=== PATIENT | female | born 1980 | race Caucasian/White ===

== ENCOUNTER 2018-10-25 00:45 | Emergency (ER) | payer SELFPAY ==
[~2018-10-25] VITALS: Ht 162.6 cm; Wt 83.9 kg
--- NOTE | 2018-10-25 01:15 | ED EENT ---
History of Present Illness General Chief Complaint: Eye Problems Stated Complaint: PAIN IN EYES Nursing Triage Note: pt states red eyes for 3 days, thinks it is pink eye History of Present Illness Date Seen by Provider: Oct 25, 2018 Time Seen by Provider: 01:11 Initial Comments Patient is a 37-year-old female who presents to the ER with 2 days of eye complaints. She describes watering and discharge and drainage from the eyes for the last 48 hours. 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 No fevers or chills. No respiratory complaints. No other symptoms this evening. No foreign body sensation. No loss of vision. She does not wear contacts. Allergies and Home Medications Allergies Coded Allergies: cefaclor (Verified Allergy, Unknown, hives, 10/25/18) Home Medications Polymyxin B Sulf/Trimethoprim 10 Ml Drops, 1 DROP OU Q4H Prescribed by: JEANINE DIETRICH on 10/25/18 0117 Patient Home Medication List Home Medication List Reviewed: Yes Review of Systems Review of Systems Constitutional: no symptoms reported Eyes: No Symptoms Reported, See HPI Ears: No Symptoms Reported Nose: no symptoms reported Mouth: no symptoms reported Throat: no symptoms reported Respiratory: no symptoms reported Cardiovascular: no symptoms reported Past Gfbbnsr-Sswzhv-Wasutk Hx Patient Social History Recent Foreign Travel: No Contact w/Someone Who Travel: No Recent Infectious Disease Expo: No Physical Abuse: No Sexual Abuse: No Mistreated: No Fear: No 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 oz. 83.703538ue; BMI Method:Stated General Appearance: WD/WN, no apparent distress Eyes: bilateral eye PERRL, bilateral eye EOMI, bilateral eye conjunctival inflammation Nose: normal inspection Mouth/Throat: normal mouth inspection Neck: full range of motion Cardiovascular: normal peripheral pulses, regular rate, rhythm Respiratory: lungs clear, normal breath sounds Gastrointestinal: normal bowel sounds Neurologic/Psychiatric: puffer tender II-XII nml as tested Skin: normal color, warm/dry Progress/Results/Core Measures Results/Orders Vital Signs/I&O 10/25/18 10/25/18 01:03 01:26 Temp 99.4 Pulse 16 72 Resp 14 12 B/P (MAP) 143/94 (110) 132/89 (103) Pulse Ox 97 96 O2 Delivery Room Air Room Air Blood Pressure Mean: 110 Progress Progress Note : Time: 01:13 Progress Note Patient is evaluated in the emergency department this evening for simple pinkeye. She's had symptoms for 48 hours. No loss of vision. She does not wear contacts. Plan is for discharge home. She is given Polytrim eyedrops and advised to use one drop every 4 hours while awake over the next 5-7 days until symptoms clear. Follow-up with primary care doctor or come back to the ER for any new or worsening symptoms. Departure Impression Primary Impression: Eye infection Additional Impression: Conjunctivitis Disposition: 01 HOME, SELF-CARE Condition: Improved Departure-Patient Inst. Referrals: NO,LOCAL PHYSICIAN (PCP) Primary Care Physician Patient Instructions: Conjunctivitis (Pinkeye) (DC) Scripts Polymyxin B Sulf/Trimethoprim (Polytrim Eye Drops) 10 Ml Drops 1 DROP OU Q4H for 5 Days, DROPS Prov: JEANINE DIETRICH DO 10/25/18 JEANINE DIETRICH DO Oct 25, 2018 01:15
[2018-10-25] MEDS ORDERED: POLY10DR OU (01:17)
[2018-10-25] MEDS ORDERED: RX-POLY/TRIMETH (POLYTRIM) OP 10 ML BTL OP ONE (01:21)
[2018-10-25 01:26] VITALS: BP 132/89
== END 2018-10-25 01:26 | disposition home or self-care (01) ==
LOC: ER FS 00:50
DX: H44.003 Unspecified purulent endophthalmitis, bilateral (principal); H10.9 Unspecified conjunctivitis; Z88.1 Allergy status to other antibiotic agents; Z98.51 Tubal ligation status
CPT/HCPCS: 99283

== ENCOUNTER 2018-11-27 05:17 | Emergency (ER) | payer SELFPAY ==
[~2018-11-27] VITALS: Ht 154.9 cm; Wt 79.4 kg
[~2018-11-27 05:17] MED LIST: POLY10DR OU
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
--- NOTE | 2018-11-27 05:57 | Diagnostic Imaging Report ---
INDICATION: Tachycardia, now sick at stomach.. TECHNIQUE: Single view chest 5:25 AM. CORRELATION STUDY: None FINDINGS: The heart size, mediastinal configuration and pulmonary vascularity are within normal limits. The lungs are clear with no consolidating infiltrate. There is no significant effusion or pneumothorax. IMPRESSION: 1. Negative appearing portable chest. Dictated by: Dictated on workstation # [id number]
[2018-11-27 06:15] LABS: EOSINOPHILS % (AUTO) 2 % (0-10); HEMATOCRIT 40 % (35-52); HEMOGLOBIN 13.8 G/DL (11.5-16.0); LYMPHOCYTES % (AUTO) 23 % (12-44); MEAN CORPUSCULAR HEMOGLOBIN 35 PG (25-34); MEAN CORPUSCULAR HGB CONC 34 G/DL (32-36); MEAN CORPUSCULAR VOLUME 101 FL (80-99); MEAN PLATELET VOLUME 8.7 FL (7.4-10.4); MONOCYTES % (AUTO) 6 % (0-12); NEUTROPHILS % (AUTO) 68 % (42-75); PLATELET COUNT 237 10^3/uL (130-400); RED CELL DISTRIBUTION WIDTH 11.7 % (10.0-14.5); WHITE BLOOD COUNT 11.3 10^3/uL (4.3-11.0)
[2018-11-27 06:16] LABS: BASOPHILS # (AUTO) 0.1 10^3/uL (0.0-0.1); BASOPHILS % (AUTO) 0 % (0-10); EOSINOPHILS # (AUTO) 0.5 10^3/uL (0.0-0.3); LYMPHOCYTES # (AUTO) 2.6 X 10^3 (1.0-4.0); MONOCYTES # (AUTO) 0.7 X 10^3 (0.0-1.0); NEUTROPHILS # (AUTO) 7.7 X 10^3 (1.8-7.8)
[2018-11-27 06:33] LABS: ALANINE AMINOTRANSFERASE 7 U/L (0-55); ALKALINE PHOSPHATASE 70 U/L (40-136); BILIRUBIN,TOTAL 0.2 MG/DL (0.1-1.0); BUN/CREATININE RATIO 15; CALCIUM 8.9 MG/DL (8.5-10.1); CARBON DIOXIDE 26 MMOL/L (21-32); CHLORIDE 99 MMOL/L (98-107); CREATININE SERUM 0.74 MG/DL (0.60-1.30); GFR ESTIMATED > 60; GLUCOSE 116 MG/DL (70-105); MAGNESIUM 2.1 MG/DL (1.8-2.4); POTASSIUM 3.6 MMOL/L (3.6-5.0); SODIUM 137 MMOL/L (135-145)
[2018-11-27 06:34] LABS: ALBUMIN 4.2 GM/DL (3.2-4.5); TOTAL PROTEIN 6.7 GM/DL (6.4-8.2)
[2018-11-27 06:35] LABS: AMPHETAMINE SCREEN, URINE NEGATIVE (NEGATIVE); BARBITURATE SCREEN URINE NEGATIVE (NEGATIVE); BENZODIAZEPINES SCREEN URINE NEGATIVE (NEGATIVE); CANNABINOID SCREEN, URINE NEGATIVE (NEGATIVE); COCAINE SCREEN URINE POSITIVE (NEGATIVE); METHADONE STAT NEGATIVE (NEGATIVE); METHAMPHETAMINE SCREEN URINE S NEGATIVE (NEGATIVE); OPIATE SCREEN URINE NEGATIVE (NEGATIVE); OXYCODONE STAT NEGATIVE (NEGATIVE); PROPOXYPHENE STAT NEGATIVE (NEGATIVE); TRICYCLIC ANTIDEPRESSANTS SCRE NEGATIVE (NEGATIVE)
[2018-11-27 07:06] VITALS: BP 133/75
== END 2018-11-27 07:06 | disposition home or self-care (01) ==
LOC: EDUNIT# 05:17 → ER FS 05:20
DX: R00.2 Palpitations (principal); F41.9 Anxiety disorder, unspecified; Z88.1 Allergy status to other antibiotic agents; Z98.51 Tubal ligation status
CPT/HCPCS: 36415; 71045; 80053; 80306; 83735; 84443; 84484; 85025; 85379; 93005; 93041

== ENCOUNTER 2019-02-17 09:10 | Emergency (ER) | payer SELFPAY ==
[~2019-02-17] VITALS: Ht 154.9 cm; Wt 79.4 kg
--- NOTE | 2019-02-17 09:27 | ED General ---
General Stated Complaint: CHEST PAIN; RT ARM PAIN/NUMBNESS History of Present Illness Date Seen by Provider: Feb 17, 2019 Time Seen by Provider: 09:27 Initial Comments Patient presents emergency department for evaluation of chest pain that she says started while she was at work. 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 She said it felt like a pressure sensation in the center of her chest and it radiated towards her right arm and caused both hands tingle in the fingertips. She says that she had some nausea but no shortness of breath vomiting or diaphoresis. She does not have diabetes hypertension high cholesterol or family history of heart disease but she does smoke cigarettes. She says she has been diagnosed with anxiety in the past and this feels somewhat similar. She is in no obvious distress with normal vital signs except mild tachycardia at 105 on the monitor while I'm in the room. Allergies and Home Medications Allergies Coded Allergies: cefaclor (Verified Allergy, Unknown, hives, 10/25/18) Home Medications Polymyxin B Sulf/Trimethoprim 10 Ml Drops, 1 DROP OU Q4H Prescribed by: JEANINE DIETRICH on 10/25/18 0117 Patient Home Medication List Home Medication List Reviewed: Yes Review of Systems Review of Systems Constitutional: no symptoms reported EENTM: no symptoms reported Respiratory: no symptoms reported Cardiovascular: chest pain Gastrointestinal: nausea All Other Systems Reviewed Negative Unless Noted: Yes Past Pzwylwv-Kdtdwx-Dhwahf Hx Patient Social History Type Used: Cigarettes 2nd Hand Smoke Exposure: No Recent Hopitalizations: No Seasonal Allergies Seasonal Allergies: No Past Medical History Section, Tonsillectomy, Tubal Ligation Respiratory: Yes Asthma Cardiac: No Neurological: No 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 oz. 79.150511uf; BMI Method:Stated General Appearance: No Apparent Distress, WD/WN Neck: Supple Respiratory: Lungs Clear, No Respiratory Distress Cardiovascular: Normal Peripheral Pulses, Tachycardia Gastrointestinal: Non Tender, Soft Back: Normal Inspection Extremity: Normal Capillary Refill Neurologic/Psychiatric: Alert, Oriented x3 Skin: Normal Color, Warm/Dry Progress/Results/Core Measures Suspected Sepsis SIRS Temperature: Pulse: Respiratory Rate: Laboratory Tests 02/17/19 09:18: White Blood Count 6.5 Blood Pressure / Mean: Laboratory Tests 02/17/19 09:18: Creatinine 0.72, Platelet Count 235, Total Bilirubin 0.5 Results/Orders Lab Results Laboratory Tests Test 02/17/19 09:18 Range/Units White Blood Count 6.5 4.3-11.0 10^3/uL Red Blood Count 3.97 L 4.35-5.85 10^6/uL Hemoglobin 13.6 11.5-16.0 G/DL Hematocrit 40 35-52 % Mean Corpuscular Volume 100 H 80-99 FL Mean Corpuscular Hemoglobin 34 25-34 PG Mean Corpuscular Hemoglobin Concent 34 32-36 G/DL Red Cell Distribution Width 12.0 10.0-14.5 % Platelet Count 235 130-400 10^3/uL Mean Platelet Volume 9.0 7.4-10.4 FL Neutrophils (%) (Auto) 66 42-75 % Lymphocytes (%) (Auto) 24 12-44 % Monocytes (%) (Auto) 7 0-12 % Eosinophils (%) (Auto) 2 0-10 % Basophils (%) (Auto) 1 0-10 % Neutrophils # (Auto) 4.3 1.8-7.8 X 10^3 Lymphocytes # (Auto) 1.6 1.0-4.0 X 10^3 Monocytes # (Auto) 0.4 0.0-1.0 X 10^3 Eosinophils # (Auto) 0.2 0.0-0.3 10^3/uL Basophils # (Auto) 0.1 0.0-0.1 10^3/uL D-Dimer < 0.27 0.00-0.49 UG/ML Sodium Level 141 135-145 MMOL/L Potassium Level 3.4 L 3.6-5.0 MMOL/L Chloride Level 102 98-107 MMOL/L Carbon Dioxide Level 27 21-32 MMOL/L Anion Gap 12 5-14 MMOL/L Blood Urea Nitrogen 9 7-18 MG/DL Creatinine 0.72 0.60-1.30 MG/DL Estimat Glomerular Filtration Rate > 60 BUN/Creatinine Ratio 13 Glucose Level 109 H 70-105 MG/DL Calcium Level 9.2 8.5-10.1 MG/DL Corrected Calcium 9.0 8.5-10.1 MG/DL Magnesium Level 2.2 1.8-2.4 MG/DL Total Bilirubin 0.5 0.1-1.0 MG/DL Aspartate Amino Transf (AST/SGOT) 14 5-34 U/L Alanine Aminotransferase (ALT/SGPT) 10 0-55 U/L Alkaline Phosphatase 77 40-136 U/L Troponin T < 6 <=10 NG/L Total Protein 7.2 6.4-8.2 GM/DL Albumin 4.3 3.2-4.5 GM/DL My Orders Orders - MONTY LAL DO Cbc With Automated Diff (02/17/19 09:33) Comprehensive Metabolic Panel (02/17/19 09:33) Troponin T (02/17/19 09:33) Fibrin Degradation Products (02/17/19 09:33) Magnesium (02/17/19 09:33) Chest 1 View Ap/Pa Only (02/17/19 09:33) Aspirin Chewable Tablet (Baby Aspirin Ch (02/17/19 09:45) Potassium Chloride (Tablet) (K Dur Table (02/17/19 11:00) Medications Given in ED Current Medications Medications Dose Ordered Sig/Delfin Route Start Time Stop Time Status Last Admin Dose Admin Aspirin 324 mg ONCE ONCE PO 02/17/19 09:45 02/17/19 09:46 DC 02/17/19 09:41 324 MG Vital Signs/I&O 02/17/19 02/17/19 09:18 09:18 Temp 97.9 Pulse 99 Resp 18 B/P (MAP) 139/70 (93) Pulse Ox 96 O2 Delivery Room Air Room Air Capillary Refill : Progress Note : Progress Note Patient given IV fluids and aspirin and I offered her Ativan however she refused. Her heart rate improved to 88 and she says she has had no further chest pain or arm pain since her arrival to the emergency department. Her workup is negative for acute process as her d-dimer troponin and EKG are all normal. I did give her a potassium supplement here however I do not think that this is causing her symptoms. Told patient that I would like to repeat her troponin and 3 hours after the initial as that is the typical way we further risk stratify her chest pain. She refused stating that she is asymptomatic and would like to go home. She verbalized understanding that she is leaving without a full emergency department workup and is accepting the risks of and disability by leaving against my recommendations. Patient stated that she would try and follow up primary care provider within 2 days and she would come back to emergency department with worsening chest pain shortness of breath or other general concerns. I advised that she stop smoking take an aspirin daily and not exert herself until further cleared by primary care provider or special officer. Patient and family aware and agreeable with plan for discharge and verbalized understanding of the above instructions. Departure Impression Primary Impression: Chest pain Qualified Codes: R07.89 - Other chest pain Additional Impressions: Hypokalemia Paresthesia Disposition: 01 HOME, SELF-CARE Condition: Stable Departure-Patient Inst. Referrals: ROSIBEL MOODY MD (PCP/Family) Primary Care Physician Patient Instructions: Chest Pain (DC) MONTY LAL DO Feb 17, 2019 09:27
[2019-02-17] MEDS ORDERED: NS 1000 ML IV BAG IV ONE (09:45)
[2019-02-17] MEDS ORDERED: ASPIRIN 81 MG CHEW (CHILDREN'S ASA) PO ONE (09:45)
--- NOTE | 2019-02-17 10:15 | Diagnostic Imaging Report ---
INDICATION: Chest pain and right arm numbness. Time of exam: 9:47 AM Correlation is made with prior chest from 11/27/2018. The heart size is normal. The pulmonary vascularity is unremarkable. The lungs are clear. No infiltrate, effusion or pneumothorax is detected. Impression: No acute cardiopulmonary process is detected. Dictated by: Dictated on workstation # [id number]
[2019-02-17 10:23] LABS: BASOPHILS % (AUTO) 1 % (0-10); EOSINOPHILS # (AUTO) 0.2 10^3/uL (0.0-0.3); EOSINOPHILS % (AUTO) 2 % (0-10); HEMATOCRIT 40 % (35-52); HEMOGLOBIN 13.6 G/DL (11.5-16.0); LYMPHOCYTES # (AUTO) 1.6 X 10^3 (1.0-4.0); LYMPHOCYTES % (AUTO) 24 % (12-44); MEAN CORPUSCULAR HEMOGLOBIN 34 PG (25-34); MEAN CORPUSCULAR HGB CONC 34 G/DL (32-36); MEAN CORPUSCULAR VOLUME 100 FL (80-99); MONOCYTES # (AUTO) 0.4 X 10^3 (0.0-1.0); MONOCYTES % (AUTO) 7 % (0-12); NEUTROPHILS # (AUTO) 4.3 X 10^3 (1.8-7.8); NEUTROPHILS % (AUTO) 66 % (42-75); PLATELET COUNT 235 10^3/uL (130-400); WHITE BLOOD COUNT 6.5 10^3/uL (4.3-11.0)
[2019-02-17 10:24] LABS: BASOPHILS # (AUTO) 0.1 10^3/uL (0.0-0.1); SODIUM 141 MMOL/L (135-145)
[2019-02-17 10:25] LABS: ALANINE AMINOTRANSFERASE 10 U/L (0-55); ALBUMIN 4.3 GM/DL (3.2-4.5); ALKALINE PHOSPHATASE 77 U/L (40-136); BILIRUBIN,TOTAL 0.5 MG/DL (0.1-1.0); BUN/CREATININE RATIO 13; CALCIUM 9.2 MG/DL (8.5-10.1); CARBON DIOXIDE 27 MMOL/L (21-32); CHLORIDE 102 MMOL/L (98-107); CREATININE SERUM 0.72 MG/DL (0.60-1.30); GFR ESTIMATED > 60; GLUCOSE 109 MG/DL (70-105); MAGNESIUM 2.2 MG/DL (1.8-2.4); POTASSIUM 3.4 MMOL/L (3.6-5.0); TOTAL PROTEIN 7.2 GM/DL (6.4-8.2)
[2019-02-17] MEDS ORDERED: KCL 20 MEQ TAB (K-DUR) PO ONE (11:00)
[2019-02-17 12:08] VITALS: BP 103/72
== END 2019-02-17 12:08 | disposition home or self-care (01) ==
LOC: EDUNIT# 09:10 → ER FS 09:12
DX: R07.9 Chest pain, unspecified (principal); E87.6 Hypokalemia; R20.2 Paresthesia of skin; F41.9 Anxiety disorder, unspecified; J45.909 Unspecified asthma, uncomplicated; F17.210 Nicotine dependence, cigarettes, uncomplicated; Z88.1 Allergy status to other antibiotic agents; Z98.51 Tubal ligation status; Z90.89 Acquired absence of other organs
CPT/HCPCS: 36415; 71045; 80053; 83735; 84484; 85025; 85379; 93005

== ENCOUNTER 2019-06-01 22:27 | Emergency (ER) | payer SELFPAY ==
[~2019-06-01] VITALS: Ht 157.5 cm; Wt 81.6 kg
[2019-06-01] MEDS ORDERED: AMOXICILLIN 500 MG (POLYMOX) CAP PO STA (22:45)
[2019-06-01] MEDS ORDERED: AMOX500C2 PO (22:47)
[2019-06-01 22:51] VITALS: BP 142/90
--- NOTE | 2019-06-01 22:56 | ED EENT ---
History of Present Illness General Chief Complaint: Oral/Throat Problems Stated Complaint: SORE THROAT Nursing Triage Note: pt co sore throat since this am Source: patient Exam Limitations: no limitations History of Present Illness Date Seen by Provider: Jun 01, 2019 Time Seen by Provider: 22:35 Initial Comments Patient is a 38-year-old female with history of recurrent strep throats who presents with sore throat and exposure to family members currently being treated for strep throat. Symptom onset today. Reports mild dysphasia. No fever, nausea, vomiting, drooling her rash. No other acute symptoms or complaints. Timing/Duration: gradual Severity: moderate Prearrival Treatment: no prearrival treatment Associated Symptoms: nasal congestion/drainage, sore throat, voice change Allergies and Home Medications Allergies Coded Allergies: cefaclor (Verified Allergy, Unknown, hives, 10/25/18) Home Medications Amoxicillin 500 Mg Capsule, 500 MG PO BID Prescribed by: IVANNA ROLLE on 06/01/19 0147 Polymyxin B Sulf/Trimethoprim 10 Ml Drops, 1 DROP OU Q4H Prescribed by: JEANINE DIETRICH on 10/25/18 0117 Patient Home Medication List Home Medication List Reviewed: Yes Review of Systems Review of Systems Constitutional: see HPI Eyes: See HPI Ears: See HPI Nose: see HPI Mouth: see HPI Throat: see HPI Respiratory: see HPI Cardiovascular: see HPI Gastrointestinal: no symptoms reported Musculoskeletal: no symptoms reported Skin: no symptoms reported Neurological: No Symptoms Reported Hematologic/Lymphatic: No Symptoms Reported Immunological/Allergic: no symptoms reported Past Plqgstl-Mikpqg-Ywyfog Hx Past Med/Social Hx: Reviewed Nursing Past Med/Soc Hx Patient Social History Alcohol Use: Denies Use Recreational Drug Use: No Type Used: Cigarettes 2nd Hand Smoke Exposure: No Recent Foreign Travel: No Contact w/Someone Who Travel: No Recent Infectious Disease Expo: No Recent Hopitalizations: No Physical Abuse: No Sexual Abuse: No Mistreated: No Fear: No Seasonal Allergies Seasonal Allergies: No Past Medical History Surgeries: Yes Section, Tonsillectomy, Tubal Ligation Respiratory: Yes Asthma Cardiac: No Neurological: No 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 oz. 79.311938bt; 32.00 BMI Method:Stated General Appearance: WD/WN Eyes: bilateral eye normal inspection, bilateral eye EOMI, bilateral eye abnormal EOM Ears: bilateral ear auricle normal, bilateral ear canal normal Nose: normal inspection Mouth/Throat: other (gradual swelling mild erythema,) Neck: full range of motion, supple ( erythema), lymphadenopathy (R), lymphadenopathy (L) Cardiovascular: normal peripheral pulses, regular rate, rhythm Respiratory: chest non-tender, lungs clear Skin: normal color Progress/Results/Core Measures Results/Orders My Orders Orders - IVANNA ROLLE DO Amoxicillin Capsule (Polymox Capsule) (06/01/19 22:45) Vital Signs/I&O 06/01/19 22:43 Temp 36.4 Pulse 104 Resp 18 B/P (MAP) 142/90 (107) Pulse Ox 97 O2 Delivery Room Air Blood Pressure Mean: 107 Departure Impression Primary Impression: Pharyngitis Disposition: 01 HOME, SELF-CARE Condition: Improved Departure-Patient Inst. Add. Discharge Instructions: Please take ibuprofen for sore throat complete course of antibiotics. Follow-up with your PCP in 2-3 days for reevaluation if symptoms persist. All discharge instructions reviewed with patient and/or family. Voiced understanding. Scripts Amoxicillin (Amoxicillin) 500 Mg Capsule 500 MG PO BID, #14 CAP 0 Refills Prov: IVANNA ROLLE DO 06/01/19 IVANNA ROLLE DO Jun 01, 2019 22:56
== END 2019-06-01 22:51 | disposition home or self-care (01) ==
LOC: EDUNIT# 22:27 → ER FS 22:28
DX: J02.9 Acute pharyngitis, unspecified (principal); J45.909 Unspecified asthma, uncomplicated; Z88.1 Allergy status to other antibiotic agents; Z90.89 Acquired absence of other organs; Z98.51 Tubal ligation status
CPT/HCPCS: 99283

== ENCOUNTER 2019-06-15 01:00 | Emergency (ER) | payer SELFPAY ==
[~2019-06-15] VITALS: Ht 157 cm; Wt 79.0 kg
[~2019-06-15 01:00] MED LIST changes: +AMOX500C2 PO
[2019-06-15] MEDS ORDERED: TRAM50TA2 PO (01:39)
[2019-06-15] MEDS ORDERED: IBUPROFEN 800 MG (MOTRIN) TAB PO ONE ×2 (01:40→01:45)
[2019-06-15 01:48] VITALS: BP 119/71
--- NOTE | 2019-06-15 07:07 | Diagnostic Imaging Report ---
EXAMINATION: Left ankle radiographs, 2 views. COMPARISON: None. HISTORY: 38-year-old female, ankle injury. FINDINGS: There are limitations of the exam relating to the 2 View technique. There is a normal variant os trigonum. There is a calcaneal heel spur. There is minimal degenerative type enthesopathy at the Achilles tendon insertion. There is a very small ossification adjacent to the dorsal aspect of the talar neck which is age-indeterminate. There is no particular prominent adjacent soft tissue swelling. There is no additionally identified potential acute fracture. There is no gross malalignment of the ankle mortise. There is no large tibiotalar joint effusion. IMPRESSION: 1. Very small 2 to 3 mm ossification adjacent to the dorsal aspect of the talar neck of uncertain exact age without particular prominent adjacent soft tissue swelling. 2. No additional identified potential acute fracture. 3. No gross malalignment of the ankle mortise or tibiotalar joint effusion. Dictated by: Dictated on workstation # [id number]
--- NOTE | 2019-06-15 15:04 | ED Lower Extremity ---
General Chief Complaint: Lower Extremity Stated Complaint: LEFT ANKLE PAIN Nursing Triage Note: PT AMBULATE TO ROOM FS02 WITH C/O LEFT ANKLE PAIN STARTING LAST NIGHT. PT STATES SHE STEPPED OFF OF A CURB AN TWISTED OR FX HER ANKLE. Nursing Sepsis Screen: No Definite Risk Exam Limitations: no limitations History of Present Illness Date Seen by Provider: Jun 14, 2019 Time Seen by Provider: 19:20 Initial Comments Patient is a 30-year-old female presents with left ankle pain after tripping on a curb 2 hours prior to ED arrival. Patient states she twisted her ankle. R eports pain with palpation and weightbearing. Denies other injury or pain complaint. Onset: just prior to arrival Pain/Injury Location: left foot Method of Injury: twisted Allergies and Home Medications Allergies Coded Allergies: cefaclor (Verified Allergy, Unknown, hives, 10/25/18) Home Medications Amoxicillin 500 Mg Capsule, 500 MG PO BID Prescribed by: IVANNA ROLLE on 06/01/19 2247 Polymyxin B Sulf/Trimethoprim 10 Ml Drops, 1 DROP OU Q4H Prescribed by: JEANINE DIETRICH on 10/25/18 0117 Tramadol HCl 50 Mg Tablet, 50 MG PO Q6H PRN for PAIN Prescribed by: IVANNA ROLLE on 06/15/19 0139 Patient Home Medication List Home Medication List Reviewed: Yes Review of Systems Constitutional: no symptoms reported EENTM: no symptoms reported Respiratory: no symptoms reported Cardiovascular: no symptoms reported Gastrointestinal: no symptoms reported Genitourinary: no symptoms reported Musculoskeletal: see HPI, joint pain Psychiatric/Neurological: No Symptoms Reported Past Rcspnvt-Meajtv-Symabh Hx Patient Social History Alcohol Use: Denies Use Recreational Drug Use: No Smoking Status: Current Everyday Smoker Type Used: Cigarettes 2nd Hand Smoke Exposure: No Recent Foreign Travel: No Contact w/Someone Who Travel: No Recent Infectious Disease Expo: No Recent Hopitalizations: No Physical Abuse: No Sexual Abuse: No Mistreated: No Fear: No Seasonal Allergies Seasonal Allergies: No Past Medical History Surgeries: Yes Section, Tonsillectomy, Tubal Ligation Respiratory: Yes Asthma Cardiac: No Neurological: No [employer] History: Tubal Ligation Genitourinary: No Gastrointestinal: No Musculoskeletal: No Endocrine: No HEENT: No Cancer: No Psychosocial: No Integumentary: No Blood Disorders: No Physical Exam Vital Signs Vital Signs - First Documented 06/15/19 06/15/19 01:11 01:48 Temp 36.9 Pulse 84 Resp 17 B/P (MAP) 116/69 (85) Pulse Ox 100 O2 Delivery Room Air Capillary Refill : Less Than 3 Seconds Height, Weight, BMI Height: 5'1.00" Weight: 175lbs. oz. 79.875101qn; 32.00 BMI Method:Stated General Appearance: WD/WN, no apparent distress Ankles: left ankle soft tissue tenderness, left ankle swelling (no gross deformity) Feet: left foot soft tissue tenderness, left foot swelling Neurologic/Tendon: normal sensation, normal motor functions, normal tendon functions Progress/Results/Core Measures Results/Orders My Orders Orders - IVANNA ROLLE DO Ankle 2 View Left (06/15/19 01:20) Crutches (06/15/19 01:34) Gel Ankle Brace (06/15/19 01:34) Ibuprofen Tablet (Motrin Tablet) (06/15/19 01:40) Ibuprofen Tablet (Motrin Tablet) (06/15/19 01:45) Vital Signs/I&O 06/15/19 06/15/19 01:11 01:48 Temp 36.9 Pulse 84 77 Resp 17 17 B/P (MAP) 116/69 (85) 119/71 Pulse Ox 100 O2 Delivery Room Air Room Air Blood Pressure Mean: 85 Departure Communication (Admissions) Left ankle sprain without evidence of fracture on imaging studies. Recommendations are supportive care with PCP follow-up. Impression Primary Impression: Sprain and strain of ankle Disposition: 01 HOME, SELF-CARE Condition: Stable Departure-Patient Inst. Referrals: ROSIBEL MOODY MD (PCP) Primary Care Physician Patient Instructions: Ankle Sprain (DC) Add. Discharge Instructions: Use crutches and wear splint and do not weightbearing with left ankle if painful. Take ibuprofen for pain and tramadol as needed for additional relief. Follow up with PCP for reevaluation in 3-5 days if continued pain on attempted weightbearing. All discharge instructions reviewed with patient and/or family. Voiced understanding. Scripts Tramadol HCl (Tramadol HCl) 50 Mg Tablet 50 MG PO Q6H PRN for PAIN for 3 Days, #15 TAB 0 Refills Prov: IVANNA ROLLE DO 06/15/19 IVANNA ROLLE DO Jun 15, 2019 15:04
== END 2019-06-15 01:48 | disposition home or self-care (01) ==
LOC: EDUNIT# 01:00 → ER FS 01:04
DX: S93.402A Sprain of unspecified ligament of left ankle, initial encounter (principal); J45.909 Unspecified asthma, uncomplicated; F17.210 Nicotine dependence, cigarettes, uncomplicated; Z90.89 Acquired absence of other organs; Z98.51 Tubal ligation status; Z88.1 Allergy status to other antibiotic agents; X50.1XXA Overexertion from prolonged static or awkward postures, initial encounter
CPT/HCPCS: 73600

== ENCOUNTER 2019-07-03 00:47 | Emergency (ER) | payer SELFPAY ==
[~2019-07-03] VITALS: Ht 157 cm; Wt 84.5 kg
[~2019-07-03 00:47] MED LIST changes: +TRAM50TA2 PO
[2019-07-03] MEDS ORDERED: AZIT250T PO (01:06)
--- NOTE | 2019-07-03 01:07 | ED EENT ---
History of Present Illness General Chief Complaint: Oral/Throat Problems Stated Complaint: SORE THROAT AND EARACHE Source: patient Exam Limitations: no limitations History of Present Illness Date Seen by Provider: Jul 03, 2019 Time Seen by Provider: 01:02 Initial Comments Patient complains of sore throat and bilateral earache for the past 2 days. It is worse at night. No fevers or chills. No sick contacts. She took nothing for her symptoms. Wondering about work tomorrow. Allergies and Home Medications Home Medications Amoxicillin 500 Mg Capsule, 500 MG PO BID Prescribed by: IVANNA ROLLE on 06/01/19 2247 Polymyxin B Sulf/Trimethoprim 10 Ml Drops, 1 DROP OU Q4H Prescribed by: JEANINE DIETRICH on 10/25/18 0117 Tramadol HCl 50 Mg Tablet, 50 MG PO Q6H PRN for PAIN Prescribed by: IVANNA ROLLE on 06/15/19 0139 Patient Home Medication List Home Medication List Reviewed: Yes Review of Systems Review of Systems Constitutional: no symptoms reported Eyes: No Symptoms Reported Ears: Pain Nose: no symptoms reported Throat: pain Respiratory: no symptoms reported Cardiovascular: no symptoms reported Skin: no symptoms reported Past Jbcvqhg-Morbme-Hjdmba Hx Patient Social History Type Used: Cigarettes 2nd Hand Smoke Exposure: No Recent Foreign Travel: No Contact w/Someone Who Travel: No Recent Hopitalizations: No Seasonal Allergies Seasonal Allergies: No Past Medical History Surgeries: Yes Section, Tonsillectomy, Tubal Ligation Respiratory: Yes Asthma Cardiac: No Neurological: 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 oz. 79.214032fk; 32.00 BMI Method:Stated General Appearance: WD/WN, no apparent distress Eyes: bilateral eye normal inspection, bilateral eye PERRL, bilateral eye EOMI Ears: bilateral ear TM red, bilateral ear TM bulging Nose: normal inspection Mouth/Throat: pharynx swelling (. beefy red Tonsils bilaterally, no abscess) Neck: supple, lymphadenopathy (R), lymphadenopathy (L) Cardiovascular: regular rate, rhythm Respiratory: lungs clear, normal breath sounds Gastrointestinal: soft Neurologic/Psychiatric: alert, normal mood/affect Skin: normal color, warm/dry Departure Impression Primary Impression: Pharyngitis Additional Impression: Otitis media Disposition: 01 HOME, SELF-CARE Condition: Stable Departure-Patient Inst. Decision time for Depature: 01:04 Referrals: ROSIBEL MOODY MD (PCP/Family) Primary Care Physician Patient Instructions: Ear Infections (Otitis Media) (DC) Add. Discharge Instructions: No work today or tomorrow. Return to work on Friday. Saltwater gargles 2-3 times daily. Drink plenty fluids. Ibuprofen for pain. All discharge instructions reviewed with patient and/or family. Voiced understanding. Scripts Azithromycin (Zithromax) 250 Mg Tablet 250 MG PO DAILY for 4 Days, #4 TAB Prov: JAYLIN MOSES MD 07/03/19 JAYLIN MOSES MD Jul 03, 2019 01:06 POS
[2019-07-03] MEDS ORDERED: AZITHROMYCIN 250 MG TAB (ZITHROMAX) PO ONE (01:15)
[2019-07-03] MEDS ORDERED: IBUPROFEN 800 MG (MOTRIN) TAB PO ONE (01:15)
[2019-07-03 01:25] VITALS: BP 139/80
--- OUTSIDE RECORDS SUMMARY | 2019-07-29 08:35 | XMS REPORT | Continuity of Care Document ---
Author Organization Unknown POS Address Unknown SP Phone Unavailable SP Allergies Active Description Code Type Severity POS Reaction Onset Reported/Identified POS to Patient Clinical Status POS Yes cefaclor [id number] Drug Allergy SP hives 10/25/2018 SP Medications There is no data. Problems Date Dx Coded Attending Type Code POS Diagnosed By POS 10/25/2018 DIETRICH DOJEANINE Ot H10 .9 SP CONJUNCTIVITIS SP 10/25/2018 DIETRICH DO, JEANINE L Ot H44.003 SP UNSPECIFIED PURULENT ENDOPHTHALMITIS, BI SP 10/25/2018 DIETRICH DO, JEANINE L Ot H57.13 SP OCULAR PAIN, BILATERAL SP 10/25/2018 DIETRICH DO JEANINE L Ot Z88 .1 SP STATUS TO OTHER ANTIBIOTIC AGENT SP 10/25/2018 DIETRICH DO, JEANINE L Ot Z98.51 SP TUBAL LIGATION STATUS SP 10/27/2018 DIETRICH DO JEANINE L Ot H10 .9 SP CONJUNCTIVITIS SP 10/27/2018 DIETRICH DO, JEANINE L Ot H44.003 SP UNSPECIFIED PURULENT ENDOPHTHALMITIS, BI SP 10/27/2018 DIETRICH DO, JEANINE L Ot H57.13 SP OCULAR PAIN, BILATERAL SP 10/27/2018 DIETRICH DO, JEANINE L Ot Z88 .1 SP STATUS TO OTHER ANTIBIOTIC AGENT SP 10/27/2018 DIETRICH DO, JEANINE L Ot Z98.51 SP TUBAL LIGATION STATUS SP 10/27/2018 DIETRICH DO, JEANINE L Ot H10 .9 SP CONJUNCTIVITIS SP 10/27/2018 DIETRICH DO, JEANINE L Ot H44.003 SP UNSPECIFIED PURULENT ENDOPHTHALMITIS, BI SP 10/27/2018 DIETRICH DO, JEANINE L Ot H57.13 SP OCULAR PAIN, BILATERAL SP 10/27/2018 DIETRICH DO, JEANINE L Ot Z88 .1 SP STATUS TO OTHER ANTIBIOTIC AGENT SP 10/27/2018 DIETRICH DO, JEANINE L Ot Z98.51 SP TUBAL LIGATION STATUS SP 11/27/2018 GABI PIERRE MD Ot F41.9 SP ANXIETY DISORDER, UNSPECIFIED SP 11/27/2018 GABI PIERRE MD Ot R00.0 SP TACHYCARDIA, UNSPECIFIED SP 11/27/2018 GABI PIERRE MD Ot R00.2 SP PALPITATIONS SP 11/27/2018 GABI PIERRE MD Ot Z88.1 SP ALLERGY STATUS TO OTHER ANTIBIOTIC AGENT SP 11/27/2018 GABI PIERRE MD Ot Z98.51 SP TUBAL LIGATION STATUS SP 12/01/2018 GABI PIERRE MD Ot F41.9 SP ANXIETY DISORDER, UNSPECIFIED SP 12/01/2018 GABI PIERRE MD Ot R00.0 SP TACHYCARDIA, UNSPECIFIED SP 12/01/2018 GABI PIERRE MD Ot R00.2 SP PALPITATIONS SP 12/01/2018 GABI PIERRE MD Ot Z88.1 SP ALLERGY STATUS TO OTHER ANTIBIOTIC AGENT SP 12/01/2018 GABI PIERRE MD Ot Z98.51 SP TUBAL LIGATION STATUS SP 12/03/2018 GABI PIERRE MD Ot F41.9 SP ANXIETY DISORDER, UNSPECIFIED SP 12/03/2018 GABI PIERRE MD Ot R00.0 SP TACHYCARDIA, UNSPECIFIED SP 12/03/2018 GABI PIERRE MD Ot R00.2 SP PALPITATIONS SP 12/03/2018 GABI PIERRE MD Ot Z88.1 SP ALLERGY STATUS TO OTHER ANTIBIOTIC AGENT SP 12/03/2018 GABI PIERRE MD Ot Z98.51 SP TUBAL LIGATION STATUS SP 02/17/2019 MONTY LAL DO Ot E87 .6 SP SP 02/17/2019 MONTY LAL DO Ot F17.210 SP NICOTINE DEPENDENCE, CIGARETTES, UNCOMPL SP 02/17/2019 MONTY LAL DO Ot F41 .9 SP DISORDER, UNSPECIFIED SP 02/17/2019 MONTY LAL DO Ot J45.909 SP UNSPECIFIED ASTHMA, UNCOMPLICATED SP 02/17/2019 MONTY LAL DO Ot R07 .9 SP PAIN, UNSPECIFIED SP 02/17/2019 MONTY LAL DO Ot R20 .2 SP OF SKIN SP 02/17/2019 MONTY LAL DO Ot Z88 .1 SP STATUS TO OTHER ANTIBIOTIC AGENT SP 02/17/2019 MONTY LAL DO Ot Z90.89 SP ACQUIRED ABSENCE OF OTHER ORGANS SP 02/17/2019 MONTY LAL DO Ot Z98.51 SP TUBAL LIGATION STATUS SP 02/19/2019 MONTY LAL DO Ot E87 .6 SP SP 02/19/2019 MONTY LAL DO Ot F17.210 SP NICOTINE DEPENDENCE, CIGARETTES, UNCOMPL SP 02/19/2019 MONTY LAL DO Ot F41 .9 SP DISORDER, UNSPECIFIED SP 02/19/2019 MONTY LAL DO Ot J45.909 SP UNSPECIFIED ASTHMA, UNCOMPLICATED SP 02/19/2019 MONTY LAL DO Ot R07 .9 SP PAIN, UNSPECIFIED SP 02/19/2019 MONTY LAL DO Ot R20 .2 SP OF SKIN SP 02/19/2019 MONTY LAL DO Ot Z88 .1 SP STATUS TO OTHER ANTIBIOTIC AGENT SP 02/19/2019 MONTY LAL DO Ot Z90.89 SP ACQUIRED ABSENCE OF OTHER ORGANS SP 02/19/2019 MONTY LAL DO Ot Z98.51 SP TUBAL LIGATION STATUS SP 06/01/2019 IVANNA ROLLE DO Ot J02.9 ACUTE SP UNSPECIFIED SP 06/01/2019 IVANNA ROLLE DO Ot J45.909 SP ASTHMA, UNCOMPLICATED SP 06/01/2019 IVANNA ROLLE DO Ot Z88.1 SP STATUS TO OTHER ANTIBIOTIC AGENT SP 06/01/2019 IVANNA ROLLE DO Ot Z90.89 SP ABSENCE OF OTHER ORGANS SP 06/01/2019 IVANNA ROLLE DO Ot Z98.51 TUBAL SPLIGATION STATUS SP 06/15/2019 IVANNA ROLLE DO Ot F17.210 SP DEPENDENCE, CIGARETTES, UNCOMPL SP 06/15/2019 IVANNA ROLLE DO Ot J45.909 SP ASTHMA, UNCOMPLICATED SP 06/15/2019 IVANNA ROLLE DO Ot M25.572 PAIN SPIN LEFT ANKLE AND JOINTS OF LEFT FO SP 06/15/2019 IVANNA ROLLE DO Ot S93.402A SP OF UNSPECIFIED LIGAMENT OF LEFT A SP 06/15/2019 IVANNA ROLLE DO Ot X50.1XXA SP FROM PROLONGED STATIC OR AW SP 06/15/2019 IVANNA ROLLE DO Ot Z88.1 SP STATUS TO OTHER ANTIBIOTIC AGENT SP 06/15/2019 IVANNA ROLLE DO Ot Z90.89 SP ABSENCE OF OTHER ORGANS SP 06/15/2019 IVANNA ROLLE DO Ot Z98.51 TUBAL SPLIGATION STATUS SP Procedures There is no data. Results Test Result Range POS Complete blood count (CBC) with automate d white blood cell (WBC) differential - POS 06:00 Blood leukocytes automated count (number/volume) 11.3 10*3/uL POS 4.3-11.0 SP Blood erythrocytes automated count (number/volume) 3.98 10*6/uL SP 4.35-5.85 SP Venous blood hemoglobin measurement (mass/volume) 13.8 g/dL SP16.0 Blood hematocrit (volume fraction) 40 % 35-52 SP Automated erythrocyte mean corpuscular volume 101 [foz_us] SP99 Automated erythrocyte mean corpuscular h emoglobin (mass per erythrocyte) SP 35 pg 25-34 SP Automated erythrocyte mean corpuscular h emoglobin concentration measurement SP 34 g/dL 32-36 SP Automated erythrocyte distribution width ratio 11. 7 % 10.0- SP Automated blood platelet count (count/volume) 237 10*3/uL SP400 Automated blood platelet mean volume measurement 8.7 [foz_us] SP 7.4-10.4 SP Automated blood neutrophils/100 leukocytes 68 % 42-75 SP Automated blood lymphocytes/100 leukocytes 23 % 12-44 SP Blood monocytes/100 leukocytes 6 % 0-12 SP Automated blood eosinophils/100 leukocytes 2 % 0-10 SP Automated blood basophils/100 leukocytes 0 % 0-10 SP Blood neutrophils automated count (number/volume) 7.7 10*3 SP7.8 Blood lymphocytes automated count (number/volume) 2.6 10*3 SP4.0 Blood monocytes automated count (number/volume) 0. 7 10*3 SP1.0 Automated eosinophil count 0.5 10*3/uL 0 .0-0.3 SP Automated blood basophil count (count/volume) 0.1 10*3/uL SP0.1 Fibrin D-dimer FEU measurement in platel et poor plasma (mass/volume) - 11/27/18 POS Fibrin D-dimer FEU measurement in platelet poor plasma (mass/volume) POS ug/mL 0.00-0.49 SP Comprehensive metabolic panel - 11/27/18 06:00 POS Serum or plasma sodium measurement (moles/volume) 137 mmol/L SP 135-145 SP Serum or plasma potassium measurement (moles/volume) 3.6 mmol/L SP 3.6-5.0 SP Serum or plasma chloride measurement (moles/volume) 99 mmol/L SP 98-107 SP Carbon dioxide 26 mmol/L 21-32 SP Serum or plasma anion gap determination (moles/volume) 12 mmol/L SP 5-14 SP Serum or plasma urea nitrogen measurement (mass/volume ) 11 mg/dL SP 7-18 SP Serum or plasma creatinine measurement (mass/volume) 0.74 mg/dL SP 0.60-1.30 SP Serum or plasma urea nitrogen/creatinine mass ratio 15 NRG SP Serum or plasma creatinine measurement w ith calculation of estimated glomerular SP rate > NRG SP Serum or plasma glucose measurement (mass/volume) 116 mg/dL SP105 Serum or plasma calcium measurement (mass/volume) 8.9 mg/dL SP10.1 Serum or plasma total bilirubin measurement (mass/volu me) 0.2 mg/dL SP 0.1-1.0 SP Serum or plasma alkaline phosphatase carri surement (enzymatic activity/volume) SP 70 U/L 40-136 SP Serum or plasma aspartate aminotransfera se measurement (enzymatic SP 11 U/L 5-34 SP Serum or plasma alanine aminotransferase measurement (enzymatic activity/volume) SP 7 U/L 0-55 SP Serum or plasma protein measurement (mass/volume) 6.7 g/dL SP8.2 Serum or plasma albumin measurement (mass/volume) 4.2 g/dL SP4.5 CALCIUM CORRECTED 8.7 mg/dL 8.5-10.1 SP Magnesium - 11/27/18 06:00 POS Magnesium 2.1 mg/dL 1.8-2.4 SP TROPONIN T - 11/27/18 06:00 POS TROPONIN T < 6 <=10 SP THYROID STIMULATING HORMONE - 11/27/18 0 6:00 POS THYROID STIMULATING HORMONE 5.79 u[iU]/mL 0.35-4.94 SP Urine drug screening test - 11/27/18 06: 03 POS Urine phencyclidine detection by screening method NEGATIVE SP Urine benzodiazepines detection by screening method NEGATIVE SP NEGATIVE SP Urine cocaine detection POSITIVE NEGATI VE SP Urine amphetamines detection by screening method N EGATIVE SP Urine methamphetamine detection by screening method NEGATIVE SP NEGATIVE SP Urine cannabinoids detection by screening method N EGATIVE SP Urine opiates detection by screening method NEGATI VE SP Urine barbiturates detection NEGATIVE N EGATIVE SP Screening urine tricyclic antidepressants detection NEGATIVE SP NEGATIVE SP Urine methadone detection by screening method NEGA TIVE SP Urine oxycodone detection NEGATIVE NEGA TIVE SP Urine propoxyphene detection NEGATIVE N EGATIVE SP Fibrin D-dimer FEU measurement in platel et poor plasma (mass/volume) - 02/17/19 POS Fibrin D-dimer FEU measurement in platelet poor plasma (mass/volume) < POSug/mL 0.00-0.49 SP Complete blood count (CBC) with automate d white blood cell (WBC) differential - POS 09:18 Blood leukocytes automated count (number/volume) 6.5 10*3/uL POS 4.3-11.0 SP Blood erythrocytes automated count (number/volume) 3.97 10*6/uL SP 4.35-5.85 SP Venous blood hemoglobin measurement (mass/volume) 13.6 g/dL SP16.0 Blood hematocrit (volume fraction) 40 % 35-52 SP Automated erythrocyte mean corpuscular volume 100 [foz_us] SP99 Automated erythrocyte mean corpuscular h emoglobin (mass per erythrocyte) SP 34 pg 25-34 SP Automated erythrocyte mean corpuscular h emoglobin concentration measurement SP 34 g/dL 32-36 SP Automated erythrocyte distribution width ratio 12. 0 % 10.0- SP Automated blood platelet count (count/volume) 235 10*3/uL SP400 Automated blood platelet mean volume measurement 9.0 [foz_us] SP 7.4-10.4 SP Automated blood neutrophils/100 leukocytes 66 % 42-75 SP Automated blood lymphocytes/100 leukocytes 24 % 12-44 SP Blood monocytes/100 leukocytes 7 % 0-12 SP Automated blood eosinophils/100 leukocytes 2 % 0-10 SP Automated blood basophils/100 leukocytes 1 % 0-10 SP Blood neutrophils automated count (number/volume) 4.3 10*3 SP7.8 Blood lymphocytes automated count (number/volume) 1.6 10*3 SP4.0 Blood monocytes automated count (number/volume) 0. 4 10*3 SP1.0 Automated eosinophil count 0.2 10*3/uL 0 .0-0.3 SP Automated blood basophil count (count/volume) 0.1 10*3/uL SP0.1 Comprehensive metabolic panel - 02/17/19 09:18 POS Serum or plasma sodium measurement (moles/volume) 141 mmol/L SP 135-145 SP Serum or plasma potassium measurement (moles/volume) 3.4 mmol/L SP 3.6-5.0 SP Serum or plasma chloride measurement (moles/volume) 102 mmol/L SP 98-107 SP Carbon dioxide 27 mmol/L 21-32 SP Serum or plasma anion gap determination (moles/volume) 12 mmol/L SP 5-14 SP Serum or plasma urea nitrogen measurement (mass/volume ) 9 mg/dL SP 7-18 SP Serum or plasma creatinine measurement (mass/volume) 0.72 mg/dL SP 0.60-1.30 SP Serum or plasma urea nitrogen/creatinine mass ratio 13 NRG SP Serum or plasma creatinine measurement w ith calculation of estimated glomerular SP rate > NRG SP Serum or plasma glucose measurement (mass/volume) 109 mg/dL SP105 Serum or plasma calcium measurement (mass/volume) 9.2 mg/dL SP10.1 Serum or plasma total bilirubin measurement (mass/volu me) 0.5 mg/dL SP 0.1-1.0 SP Serum or plasma alkaline phosphatase carri surement (enzymatic activity/volume) SP 77 U/L 40-136 SP Serum or plasma aspartate aminotransfera se measurement (enzymatic SP 14 U/L 5-34 SP Serum or plasma alanine aminotransferase measurement (enzymatic activity/volume) SP 10 U/L 0-55 SP Serum or plasma protein measurement (mass/volume) 7.2 g/dL SP8.2 Serum or plasma albumin measurement (mass/volume) 4.3 g/dL SP4.5 CALCIUM CORRECTED 9.0 mg/dL 8.5-10.1 SP Magnesium - 02/17/19 09:18 POS Magnesium 2.2 mg/dL 1.8-2.4 SP TROPONIN T - 02/17/19 09:18 POS TROPONIN T < 6 <=10 SP Encounters ACCT No. Visit Date/Time Discharge Status POS Pt. Type Provider Facility Loc./Un it POS Complaint POS [id number] 07/03/2019 00:50:00 019 01:25:00 SP DIS Emergency JOSUÉ MCMILLAN, JAYLIN Joyner SP - [facility] FS SORE THROAT AND EARACHE SP [id number] 06/15/2019 01:04[facility] LEFT ANKLE PAIN [id number] 06/01/2019 22:28:00 22:51:[facility] SORE THROAT [id number] 02/17/2019 09:12:00 12:08:00 SP DIS Emergency HALI DOMONTY [facility] ER FS CHEST PAIN; RT ARM PAIN/NUMB NESS [id number] 11/27/2018 05:20:00 07:06:00 SP DIS Emergency IGNACIO MCMILLAN, GABI Danielle Via [facility] FS HEART RACING,NAUSEOU S SP [id number] 10/25/2018 00:50:00 01:26:00 SP DIS Emergency JEANINE DIETRICH DO Via [facility] ER FS PAIN IN EYES SP
== END 2019-07-03 01:25 | disposition home or self-care (01) ==
LOC: EDUNIT# 00:47 → ER FS 00:50
DX: J02.9 Acute pharyngitis, unspecified (principal); H66.93 Otitis media, unspecified, bilateral; J45.909 Unspecified asthma, uncomplicated; Z90.89 Acquired absence of other organs; Z98.51 Tubal ligation status
CPT/HCPCS: 99283

== ENCOUNTER 2019-08-23 22:04 | Emergency (ER) | payer SELFPAY ==
[~2019-08-23] VITALS: Ht 157.4 cm; Wt 84.0 kg
[~2019-08-23 22:04] MED LIST changes: +AZIT250T PO
--- NOTE | 2019-08-23 22:18 | ED Cough/URI ---
General Stated Complaint: COUGH/RUNNY NOSE Source: patient Exam Limitations: no limitations History of Present Illness Date Seen by Provider: Aug 23, 2019 Time Seen by Provider: 22:13 Initial Comments 38-year-old female presents with cough, congestion, sore throat, bilateral ear fullness for at least 3-4 days. She does not report any fever, shortness of br eath, nausea or vomiting. Allergies and Home Medications Home Medications Amoxicillin 500 Mg Capsule, 500 MG PO BID Prescribed by: IVANNA ROLLE on 06/01/192246 Azithromycin 250 Mg Tablet, 250 MG PO DAILY Prescribed by: JAYLIN MOSES on 07/03/19 010 Polymyxin B Sulf/Trimethoprim 10 Ml Drops, 1 DROP OU Q4H Prescribed by: JEANINE DIETRICH on 10/25/18 0117 Tramadol HCl 50 Mg Tablet, 50 MG PO Q6H PRN for PAIN Prescribed by: IVANNA ROLLE on 06/15/19 0139 Patient Home Medication List Home Medication List Reviewed: Yes Review of Systems Review of Systems Constitutional: No chills, No dizziness, No fever EENTM: ear pain, nose congestion, throat pain Respiratory: cough; No short of breath Cardiovascular: No chest pain Gastrointestinal: No diarrhea, No nausea, No vomiting Musculoskeletal: see HPI Skin: see HPI Psychiatric/Neurological: See HPI Past Kxfxcuu-Ybgwnm-Bnjzoy Hx Past Med/Social Hx: Reviewed Nursing Past Med/Soc Hx Patient Social History Type Used: Cigarettes 2nd Hand Smoke Exposure: No Recent Foreign Travel: No Contact w/Someone Who Travel: No Recent Hopitalizations: No Seasonal Allergies Seasonal Allergies: No Past Medical History Surgeries: Yes Section, Tonsillectomy, Tubal Ligation Respiratory: Yes Asthma Cardiac: No 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 oz. 79.513717vq; 34.00 BMI Method:Stated General Appearance: WD/WN, no apparent distress HEENT: other (bilateral cerumen, TMs not visualized) Neck: supple Respiratory: lungs clear, normal breath sounds, no respiratory distress Cardiovascular: normal peripheral pulses, regular rate, rhythm Gastrointestinal: non tender, soft Extremities: normal range of motion, non-tender Neurologic/Psychiatric: alert, normal mood/affect, oriented x 3 Skin: normal color Lymphatic: no adenopathy Progress/Results/Core Measures Suspected Sepsis SIRS Temperature: Pulse: Respiratory Rate: Blood Pressure / Mean: Results/Orders Vital Signs/I&O Capillary Refill : Departure Impression Primary Impression: Viral upper respiratory tract infection with cough Disposition: HOME, SELF-CARE Condition: Stable Departure-Patient Inst. Referrals: ROSIBEL MOODY MD (PCP/Family) Primary Care Physician Patient Instructions: Cough, Runny Nose, and the Common Cold (DC), Viral Syndrome (DC) Add. Discharge Instructions: Emergency department focuses on treating and ruling out life-threatening diseases. Whenever possible, a diagnosis is given. However, most patients are given an impression based on their history, physical exam, and workup during your brief time in the ER. Information about probable diagnosis and other educational material has been provided. Please take the time to read and understand this information. It is very important that you follow up with a physician as discussed during the visit today. Failure to adhere to your follow-up instructions may lead to severe disability, injury, or so please make sure to keep your appointments or obtain one as requested. Please keep in mind the emergency department is not designed to your primary care or "family doctor" and nonurgent issues are best evaluated by an outpatient physician APRIL KRAUSE DO Aug 23, 2019 22:18
[2019-08-23 22:22] VITALS: BP 134/82
== END 2019-08-23 22:23 | disposition home or self-care (01) ==
LOC: EDUNIT# 22:04 → ER FS 22:06
DX: J06.9 Acute upper respiratory infection, unspecified (principal); J45.909 Unspecified asthma, uncomplicated; Z90.89 Acquired absence of other organs; Z98.51 Tubal ligation status
CPT/HCPCS: 99282

== ENCOUNTER 2019-09-19 22:35 | Emergency (ER) | payer SELFPAY ==
[~2019-09-19] VITALS: Ht 157.5 cm; Wt 85.6 kg
[~2019-09-19 22:35] MED LIST changes: -TRAM50TA2 PO; +TRM50T PO
--- NOTE | 2019-09-19 22:57 | ED EENT ---
History of Present Illness General Chief Complaint: Oral/Throat Problems Stated Complaint: SORE THROAT/TROUBLE SWALLOWING Nursing Triage Note: PT AMBULATE TO ROOM FS02 WITH C/O SORE THROAT FOR "A COUPLE DAYS". Source: patient History of Present Illness Date Seen by Provider: Sep 19, 2019 Time Seen by Provider: 22:42 Initial Comments 38-year-old female presents to the emergency room with a two-day history of sore throat coryza. Patient reports at she's had some trouble swallowing her tongue is been discolored to a white vanilla color. Patient denies any other medical problems including cardiac pulmonary GI or renal. Patient gave informed consent for diagnostic and therapeutic services. Timing/Duration: yesterday Location: nose, mouth, throat Prearrival Treatment: over the counter meds Modifying Factors: Improves With Activity, Improves With Rest Associated Symptoms: cough, fever, malaise, poor fluid intake, sore throat Allergies and Home Medications Allergies Coded Allergies: cefaclor (Verified Allergy, Unknown, hives, 10/25/18) Home Medications Amoxicillin 500 Mg Capsule, 500 MG PO BID Prescribed by: IVANNA ROLLE on 06/01/19 2247 Azithromycin 250 Mg Tablet, 250 MG PO DAILY Prescribed by: JAYLIN MOSES on 07/03/19 0106 Polymyxin B Sulf/Trimethoprim 10 Ml Drops, 1 DROP OU Q4H Prescribed by: JEANINE DIETRICH on 10/25/18 0117 Tramadol HCl 50 Mg Tablet, 50 MG PO Q6H PRN for PAIN Prescribed by: IVANNA ROLLE on 06/15/19 0139 Patient Home Medication List Home Medication List Reviewed: Yes Review of Systems Review of Systems Constitutional: chills, dizziness, fever, malaise, weakness Eyes: No Symptoms Reported Ears: No Symptoms Reported Nose: congestion, clear discharge Mouth: pain, other (coated tongue) Throat: pain, painful swallowing Respiratory: cough, short of breath Cardiovascular: no symptoms reported Gastrointestinal: no symptoms reported : No Musculoskeletal: muscle pain, muscle weakness Skin: no symptoms reported Neurological: Anxiety, Weakness Hematologic/Lymphatic: No Symptoms Reported Immunological/Allergic: no symptoms reported Past Wmdtgsl-Wfsjsn-Iuccze Hx Past Med/Social Hx: Reviewed Nursing Past Med/Soc Hx Patient Social History Alcohol Use: Denies Use Recreational Drug Use: No Smoking Status: Current Everyday Smoker Type Used: Cigarettes 2nd Hand Smoke Exposure: No Recent Foreign Travel: No Contact w/Someone Who Travel: No Recent Infectious Disease Expo: No Recent Hopitalizations: No Physical Abuse: No Sexual Abuse: No Mistreated: No Fear: No Seasonal Allergies Seasonal Allergies: No Past Medical History Surgeries: Yes Section, Tonsillectomy, Tubal Ligation Respiratory: Yes Asthma Cardiac: No 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 oz. [id number]; 34.00 BMI Method:Stated General Appearance: moderate distress (from pharyngitis) Eyes: bilateral eye normal inspection, bilateral eye PERRL, bilateral eye EOMI Ears: bilateral ear auricle normal, bilateral ear canal normal, bilateral ear TM normal Nose: discharge Mouth/Throat: pharynx tenderness Neck: non-tender, full range of motion, supple, normal inspection Cardiovascular: regular rate, rhythm, no edema, no gallop, no JVD, no murmur Respiratory: chest non-tender, lungs clear, normal breath sounds, no respiratory distress, no accessory muscle use, other ( patient is a smoker and was strongly recommended to participate in tobacco cessation activities) Gastrointestinal: normal bowel sounds, non tender, soft, no organomegaly, no pulsatile mass 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 as tested, no motor/sensory deficits, alert, normal mood/affect, oriented x 3 Skin: normal color, warm/dry Progress/Results/Core Measures Results/Orders Lab Results Laboratory Tests Test 09/19/19 22:45 Range/Units Group A Streptococcus Screen NEGATIVE NEGATIVE Micro Results Microbiology 09/19/19 Influenza Types A,B Antigen (CHRISTY) - Final, Complete My Orders Orders - CHELITA DALEY DO Influenza A And B Antigens (09/19/19 22:51) Rapid Strep A Screen (09/19/19 22:51) Vital Signs/I&O 09/19/19 22:44 Temp 36.7 Pulse 104 Resp 16 B/P (MAP) 131/70 (90) O2 Delivery Room Air Blood Pressure Mean: 90 Departure Impression Primary Impression: Pharyngitis Disposition: 01 HOME, SELF-CARE Condition: Stable Departure-Patient Inst. Decision time for Depature: 23:34 Referrals: ROSIBEL MOODY MD (PCP/Family) Primary Care Physician Patient Instructions: Sore Throat, Adult (DC), Bacterial Upper Respiratory Infection, Adult (DC) Add. Discharge Instructions: Patient has a negative strep screen and negative influenza screen. She does have significant cobblestone pharynx however she also feels that there is definitely some kind of infection going on her throat. We have given the patient azithromycin 500 mg in the emergency room and she will continue with 250 per day for 4 days. She will follow-up with her primary care provider. She'll drink plenty of fluids have strongly advised her to stop smoking. Patient should be able to go back to work tomorrow given the fact that she is taking azithromycin tonight and tomorrow morning. She can take Tylenol for discomfort fluids and rest All discharge instructions reviewed with patient and/or family. Voiced understanding. Scripts Azithromycin (Azithromycin) 250 Mg Tablet 250 MG PO DAILY for 4 Days, #4 TAB 0 Refills Prov: CHELITA DALEY DO 09/19/19 CHELITA DALEY DO Sep 19, 2019 22:57
[2019-09-19] MEDS ORDERED: AZIT250T12 PO (23:35)
[2019-09-19] MEDS ORDERED: AZITHROMYCIN 250 MG TAB (ZITHROMAX) PO ONE (23:45)
[2019-09-19 23:46] VITALS: BP 144/79
== END 2019-09-19 23:46 | disposition home or self-care (01) ==
LOC: EDUNIT# 22:35 → ER FS 22:37
DX: J02.9 Acute pharyngitis, unspecified (principal); F17.210 Nicotine dependence, cigarettes, uncomplicated; Z90.89 Acquired absence of other organs; Z98.51 Tubal ligation status; Z88.1 Allergy status to other antibiotic agents
CPT/HCPCS: 87430; 87804

== ENCOUNTER 2019-09-27 04:06 | Emergency (ER) | payer SELFPAY ==
[~2019-09-27] VITALS: Ht 157.4 cm; Wt 85.3 kg
[~2019-09-27 04:06] MED LIST changes: +AZIT250T12 PO
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
[2019-09-27 04:56] VITALS: BP 148/77
--- NOTE | 2019-09-27 06:45 | Diagnostic Imaging Report ---
INDICATION: Right wrist injury, pain. COMPARISON: None FINDINGS: 3 views of the right wrist demonstrate no fracture or dislocation. Articular surfaces are age-appropriate. No bony erosion or foreign body. IMPRESSION: Negative right wrist Dictated by: Dictated on workstation # [id number]
== END 2019-09-27 04:56 | disposition home or self-care (01) ==
LOC: EDUNIT# 04:06 → ER FS 04:09
DX: S60.211A Contusion of right wrist, initial encounter (principal); F17.210 Nicotine dependence, cigarettes, uncomplicated; Z88.1 Allergy status to other antibiotic agents; W50.0XXA Accidental hit or strike by another person, initial encounter; Y93.72 Activity, wrestling
CPT/HCPCS: 73110

== ENCOUNTER 2020-01-04 22:26 | Emergency (ER) | payer SELFPAY ==
[~2020-01-04] VITALS: Ht 157 cm; Wt 84.9 kg
--- OUTSIDE RECORDS SUMMARY | 2020-01-04 22:31 | XMS REPORT | Continuity of Care Document ---
Author Organization Unknown Address Unknown Phone Unavailable Allergies Active Description Code Type Severity Reaction Onset Reported/Identified Relationship to Patient Clinical Status Yes cefaclor [id number] Drug Allergy Unknown hives 10/25/2018 Medications There is no data. Problems Date Dx Coded Attending Type Code Diagnosis Diagnosed By 10/25/2018 DIETRICH DO JEANINE L Ot H10 .9 UNSPECIFIED CONJUNCTIVITIS 10/25/2018 DIETRICH DO, JEANINE L Ot H44.003 UNSPECIFIED PURULENT ENDOPHTHALMITIS, BI 10/25/2018 DIETRICH DO JEANINE L Ot H57.13 OCULAR PAIN, BILATERAL 10/25/2018 DIETRICH DO, JEANINE L Ot Z88 .1 ALLERGY STATUS TO OTHER ANTIBIOTIC AGENT 10/25/2018 DIETRICH DO, JEANINE L Ot Z98.51 TUBAL LIGATION STATUS 10/27/2018 DIETRICH DO JEANINE L Ot H10 .9 UNSPECIFIED CONJUNCTIVITIS 10/27/2018 DIETRICH DO, JEANINE L Ot H44.003 UNSPECIFIED PURULENT ENDOPHTHALMITIS, BI 10/27/2018 DIETRICH DO, JEANINE L Ot H57.13 OCULAR PAIN, BILATERAL 10/27/2018 DIETRICH DO, JEANINE L Ot Z88 .1 ALLERGY STATUS TO OTHER ANTIBIOTIC AGENT 10/27/2018 DIETRICH DO, JEANINE L Ot Z98.51 TUBAL LIGATION STATUS 10/27/2018 DIETRICH DO JEANINE L Ot H10 .9 UNSPECIFIED CONJUNCTIVITIS 10/27/2018 DIETRICH DO, JEANINE L Ot H44.003 UNSPECIFIED PURULENT ENDOPHTHALMITIS, BI 10/27/2018 DIETRICH DO, JEANINE L Ot H57.13 OCULAR PAIN, BILATERAL 10/27/2018 DIETRICH DO, JEANINE L Ot Z88 .1 ALLERGY STATUS TO OTHER ANTIBIOTIC AGENT 10/27/2018 DIETRICH DO, JEANINE L Ot Z98.51 TUBAL LIGATION STATUS 11/27/2018 GABI PIERRE MD Ot F41.9 ANXIETY DISORDER, UNSPECIFIED 11/27/2018 GABI PIERRE MD Ot R00.0 TACHYCARDIA, UNSPECIFIED 11/27/2018 GABI PIERRE MD Ot R00.2 PALPITATIONS 11/27/2018 GABI PIERRE MD Ot Z88.1 ALLERGY STATUS TO OTHER ANTIBIOTIC AGENT 11/27/2018 GABI PIERRE MD Ot Z98.51 TUBAL LIGATION STATUS 12/01/2018 GABI PIERRE MD Ot F41.9 ANXIETY DISORDER, UNSPECIFIED 12/01/2018 GABI PIERRE MD Ot R00.0 TACHYCARDIA, UNSPECIFIED 12/01/2018 GABI PIERRE MD Ot R00.2 PALPITATIONS 12/01/2018 GABI PIERRE MD Ot Z88.1 ALLERGY STATUS TO OTHER ANTIBIOTIC AGENT 12/01/2018 GABI PIERRE MD Ot Z98.51 TUBAL LIGATION STATUS 12/03/2018 GABI PIERRE MD Ot F41.9 ANXIETY DISORDER, UNSPECIFIED 12/03/2018 GABI PIERRE MD Ot R00.0 TACHYCARDIA, UNSPECIFIED 12/03/2018 GABI PIERRE MD Ot R00.2 PALPITATIONS 12/03/2018 GABI PIERRE MD Ot Z88.1 ALLERGY STATUS TO OTHER ANTIBIOTIC AGENT 12/03/2018 GABI PIERRE MD Ot Z98.51 TUBAL LIGATION STATUS 02/17/2019 MONTY LAL DO Ot E87 .6 HYPOKALEMIA 02/17/2019 MONTY LAL DO Ot F17.210 NICOTINE DEPENDENCE, CIGARETTES, UNCOMPL 02/17/2019 MONTY LAL DO Ot F41 .9 ANXIETY DISORDER, UNSPECIFIED 02/17/2019 MONTY LAL DO Ot J45.909 UNSPECIFIED ASTHMA, UNCOMPLICATED 02/17/2019 MONTY LAL DO Ot R07 .9 CHEST PAIN, UNSPECIFIED 02/17/2019 MONTY LAL DO Ot R20 .2 PARESTHESIA OF SKIN 02/17/2019 MONTY LAL DO Ot Z88 .1 ALLERGY STATUS TO OTHER ANTIBIOTIC AGENT 02/17/2019 MONTY LAL DO Ot Z90.89 ACQUIRED ABSENCE OF OTHER ORGANS 02/17/2019 MONTY LAL DO Ot Z98.51 TUBAL LIGATION STATUS 02/19/2019 MONTY LAL DO Ot E87 .6 HYPOKALEMIA 02/19/2019 MONTY LAL DO Ot F17.210 NICOTINE DEPENDENCE, CIGARETTES, UNCOMPL 02/19/2019 MONTY LAL DO Ot F41 .9 ANXIETY DISORDER, UNSPECIFIED 02/19/2019 MONTY LAL DO Ot J45.909 UNSPECIFIED ASTHMA, UNCOMPLICATED 02/19/2019 MONTY LAL DO Ot R07 .9 CHEST PAIN, UNSPECIFIED 02/19/2019 MONTY LAL DO Ot R20 .2 PARESTHESIA OF SKIN 02/19/2019 MONTY LAL DO Ot Z88 .1 ALLERGY STATUS TO OTHER ANTIBIOTIC AGENT 02/19/2019 MONTY LAL DO Ot Z90.89 ACQUIRED ABSENCE OF OTHER ORGANS 02/19/2019 MONTY LAL DO Ot Z98.51 TUBAL LIGATION STATUS 06/01/2019 IVANNA ROLLE DO Ot J02.9 ACUTE PHARYNGITIS, UNSPECIFIED 06/01/2019 IVANNA ROLLE DO Ot J45.909 UNSPECIFIED ASTHMA, UNCOMPLICATED 06/01/2019 IVANNA ROLLE DO Ot Z88.1 ALLERGY STATUS TO OTHER ANTIBIOTIC AGENT 06/01/2019 IVANNA ROLLE DO Ot Z90.89 ACQUIRED ABSENCE OF OTHER ORGANS 06/01/2019 IVANNA ROLLE DO Ot Z98.51 TUBAL LIGATION STATUS 06/15/2019 IVANNA ROLLE DO Ot F17.210 NICOTINE DEPENDENCE, CIGARETTES, UNCOMPL 06/15/2019 IVANNA ROLLE DO Ot J45.909 UNSPECIFIED ASTHMA, UNCOMPLICATED 06/15/2019 IVANNA ROLLE DO Ot M25.572 PAIN IN LEFT ANKLE AND JOINTS OF LEFT FO 06/15/2019 IVANNA ROLLE DO Ot S93.402A SPRAIN OF UNSPECIFIED LIGAMENT OF LEFT A 06/15/2019 IVANNA ROLLE DO Ot X50.1XXA OVEREXERTION FROM PROLONGED STATIC OR AW 06/15/2019 IVANNA ROLLE DO Ot Z88.1 ALLERGY STATUS TO OTHER ANTIBIOTIC AGENT 06/15/2019 IVANNA ROLLE DO Ot Z90.89 ACQUIRED ABSENCE OF OTHER ORGANS 06/15/2019 IVANNA ROLLE DO Ot Z98.51 TUBAL LIGATION STATUS 08/27/2019 JOSUÉ MCMILLAN, JAYLIN Garcia Ot H66. 93 OTITIS MEDIA, UNSPECIFIED, BILATERAL 08/27/2019 JOSUÉ MCMILLAN, JAYLIN Garcia Ot J02. 9 ACUTE PHARYNGITIS, UNSPECIFIED 08/27/2019 JOSUÉ MCMILLAN, JAYLIN Garcia Ot J45.909 UNSPECIFIED ASTHMA, UNCOMPLICATED 08/27/2019 JOSUÉ MCMILLAN, JAYLIN A Ot Z90. 89 ACQUIRED ABSENCE OF OTHER ORGANS 08/27/2019 JOSUÉ MCMILLAN, JAYLIN A Ot Z98. 51 TUBAL LIGATION STATUS 08/27/2019 KRAUSE DO, APRIL L Ot J06.9 ACUTE UPPER RESPIRATORY INFECTION, UNSPE 08/27/2019 KRAUSE DO, APRIL L Ot J45.9 09 UNSPECIFIED ASTHMA, UNCOMPLICATED 08/27/2019 KRAUSE DO, APRIL L Ot R05 COUGH 08/27/2019 KRAUSE DO, APRIL L Ot Z90.8 9 ACQUIRED ABSENCE OF OTHER ORGANS 08/27/2019 KRAUSE DO, APRIL L Ot Z98.5 1 TUBAL LIGATION STATUS 08/29/2019 KRAUSE DO, APRIL L Ot J06.9 ACUTE UPPER RESPIRATORY INFECTION, UNSPE 08/29/2019 KRAUSE DO, APRIL L Ot J45.9 09 UNSPECIFIED ASTHMA, UNCOMPLICATED 08/29/2019 KRAUSE DO, APRIL L Ot R05 COUGH 08/29/2019 KRAUSE DO, APRIL L Ot Z90.8 9 ACQUIRED ABSENCE OF OTHER ORGANS 08/29/2019 KRAUSE DO, APRIL L Ot Z98.5 1 TUBAL LIGATION STATUS 09/19/2019 THUY DO, CHELITA H Ot F17.210 NICOTINE DEPENDENCE, CIGARETTES, UNCOMPL 09/19/2019 THUY DO, CHELITA H Ot J02.9 ACUTE PHARYNGITIS, UNSPECIFIED 09/19/2019 THUY DO, CHELITA H Ot R13.10 DYSPHAGIA, UNSPECIFIED 09/19/2019 THUY DO, CHELITA H Ot Z88.1 ALLERGY STATUS TO OTHER ANTIBIOTIC AGENT 09/19/2019 THUY DO, CHELITA H Ot Z90.89 ACQUIRED ABSENCE OF OTHER ORGANS 09/19/2019 THUY DO, CHELITA H Ot Z98.51 TUBAL LIGATION STATUS 09/22/2019 THUY DO, CHELITA H Ot F17.210 NICOTINE DEPENDENCE, CIGARETTES, UNCOMPL 09/22/2019 THUY DO, CHELITA H Ot J02.9 ACUTE PHARYNGITIS, UNSPECIFIED 09/22/2019 THUY DO, CHELITA H Ot R13.10 DYSPHAGIA, UNSPECIFIED 09/22/2019 THUY DO, CHELITA H Ot Z88.1 ALLERGY STATUS TO OTHER ANTIBIOTIC AGENT 09/22/2019 CHELITA DALEY DO Ot Z90.89 ACQUIRED ABSENCE OF OTHER ORGANS 09/22/2019 CHELITA DALEY DO, Ot Z98.51 TUBAL LIGATION STATUS 09/27/2019 CIARAN HAMILTON MD, Ot F17.210 NICOTINE DEPENDENCE, CIGARETTES, UNCOMPL 09/27/2019 CIARAN HAMILTON MD Ot M79.644 PAIN IN RIGHT FINGER(S) 09/27/2019 CIARAN HAMILTON MD, Ot S60.211A CONTUSION OF RIGHT WRIST, INITIAL ENCOUN 09/27/2019 CIARAN HAMILTON MD, Ot W50.0XXA ACCIDENTAL HIT OR STRIKE BY ANOTHER PERS 09/27/2019 CIARAN HAMILTON MD, Ot Y93.72 ACTIVITY, WRESTLING 09/27/2019 CIARAN HAMILTON MD, Ot Z88.1 ALLERGY STATUS TO OTHER ANTIBIOTIC AGENT Procedures There is no data. Results Test Result Range Complete blood count (CBC) with automate d white blood cell (WBC) differential - 11/27/18 06:00 Blood leukocytes automated count (number/volume) 11.3 10*3/uL 4.3-11.0 Blood erythrocytes automated count (number/volume) 3.98 10*6/uL 4.35-5.85 Venous blood hemoglobin measurement (mass/volume) 13.8 g/dL 11.5-16.0 Blood hematocrit (volume fraction) 40 % 35-52 Automated erythrocyte mean corpuscular volume 101 [foz_us] 80-99 Automated erythrocyte mean corpuscular h emoglobin (mass per erythrocyte) 35 pg 25-34 Automated erythrocyte mean corpuscular h emoglobin concentration measurement (mass/volume) 34 g/dL 32-36 Automated erythrocyte distribution width ratio 11. 7 % 10.0- 14.5 Automated blood platelet count (count/volume) 237 10*3/uL 130-400 Automated blood platelet mean volume measurement 8.7 [foz_us] 7.4-10.4 Automated blood neutrophils/100 leukocytes 68 % 42-75 Automated blood lymphocytes/100 leukocytes 23 % 12-44 Blood monocytes/100 leukocytes 6 % 0-12 Automated blood eosinophils/100 leukocytes 2 % 0-10 Automated blood basophils/100 leukocytes 0 % 0-10 Blood neutrophils automated count (number/volume) 7.7 10*3 1.8-7.8 Blood lymphocytes automated count (number/volume) 2.6 10*3 1.0-4.0 Blood monocytes automated count (number/volume) 0. 7 10*3 0.0-1.0 Automated eosinophil count 0.5 10*3/uL 0 .0-0.3 Automated blood basophil count (count/volume) 0.1 10*3/uL 0.0-0.1 Fibrin D-dimer FEU measurement in platel et poor plasma (mass/volume) - 11/27/18 06:00 Fibrin D-dimer FEU measurement in platelet poor plasma (mass/volume) 0.33 ug/mL 0.00-0.49 Comprehensive metabolic panel - 11/27/18 06:00 Serum or plasma sodium measurement (moles/volume) 137 mmol/L 135-145 Serum or plasma potassium measurement (moles/volume) 3.6 mmol/L 3.6-5.0 Serum or plasma chloride measurement (moles/volume) 99 mmol/L 98-107 Carbon dioxide 26 mmol/L 21-32 Serum or plasma anion gap determination (moles/volume) 12 mmol/L 5-14 Serum or plasma urea nitrogen measurement (mass/volume ) 11 mg/dL 7-18 Serum or plasma creatinine measurement (mass/volume) 0.74 mg/dL 0.60-1.30 Serum or plasma urea nitrogen/creatinine mass ratio 15 NRG Serum or plasma creatinine measurement w ith calculation of estimated glomerular filtration rate > NRG Serum or plasma glucose measurement (mass/volume) 116 mg/dL 70-105 Serum or plasma calcium measurement (mass/volume) 8.9 mg/dL 8.5-10.1 Serum or plasma total bilirubin measurement (mass/volu me) 0.2 mg/dL 0.1-1.0 Serum or plasma alkaline phosphatase carri surement (enzymatic activity/volume) 70 U/L 40-136 Serum or plasma aspartate aminotransfera se measurement (enzymatic activity/volume) 11 U/L 5-34 Serum or plasma alanine aminotransferase measurement (enzymatic activity/volume) 7 U/L 0-55 Serum or plasma protein measurement (mass/volume) 6.7 g/dL 6.4-8.2 Serum or plasma albumin measurement (mass/volume) 4.2 g/dL 3.2-4.5 CALCIUM CORRECTED 8.7 mg/dL 8.5-10.1 Magnesium - 11/27/18 06:00 Magnesium 2.1 mg/dL 1.8-2.4 TROPONIN T - 11/27/18 06:00 TROPONIN T < 6 <=10 THYROID STIMULATING HORMONE - 11/27/18 0 6:00 THYROID STIMULATING HORMONE 5.79 u[iU]/mL 0.35-4.94 Urine drug screening test - 11/27/18 06: 03 Urine phencyclidine detection by screening method NEGATIVE NEGATIVE Urine benzodiazepines detection by screening method NEGATIVE NEGATIVE Urine cocaine detection POSITIVE NEGATI VE Urine amphetamines detection by screening method N EGATIVE NEGATIVE Urine methamphetamine detection by screening method NEGATIVE NEGATIVE Urine cannabinoids detection by screening method N EGATIVE NEGATIVE Urine opiates detection by screening method NEGATI VE NEGATIVE Urine barbiturates detection NEGATIVE N EGATIVE Screening urine tricyclic antidepressants detection NEGATIVE NEGATIVE Urine methadone detection by screening method NEGA TIVE NEGATIVE Urine oxycodone detection NEGATIVE NEGA TIVE Urine propoxyphene detection NEGATIVE N EGATIVE Fibrin D-dimer FEU measurement in platel et poor plasma (mass/volume) - 02/17/19 09:18 Fibrin D-dimer FEU measurement in platelet poor plasma (mass/volume) < ug/mL 0.00-0.49 Complete blood count (CBC) with automate d white blood cell (WBC) differential - 02/17/19 09:18 Blood leukocytes automated count (number/volume) 6.5 10*3/uL 4.3-11.0 Blood erythrocytes automated count (number/volume) 3.97 10*6/uL 4.35-5.85 Venous blood hemoglobin measurement (mass/volume) 13.6 g/dL 11.5-16.0 Blood hematocrit (volume fraction) 40 % 35-52 Automated erythrocyte mean corpuscular volume 100 [foz_us] 80-99 Automated erythrocyte mean corpuscular h emoglobin (mass per erythrocyte) 34 pg 25-34 Automated erythrocyte mean corpuscular h emoglobin concentration measurement (mass/volume) 34 g/dL 32-36 Automated erythrocyte distribution width ratio 12. 0 % 10.0- 14.5 Automated blood platelet count (count/volume) 235 10*3/uL 130-400 Automated blood platelet mean volume measurement 9.0 [foz_us] 7.4-10.4 Automated blood neutrophils/100 leukocytes 66 % 42-75 Automated blood lymphocytes/100 leukocytes 24 % 12-44 Blood monocytes/100 leukocytes 7 % 0-12 Automated blood eosinophils/100 leukocytes 2 % 0-10 Automated blood basophils/100 leukocytes 1 % 0-10 Blood neutrophils automated count (number/volume) 4.3 10*3 1.8-7.8 Blood lymphocytes automated count (number/volume) 1.6 10*3 1.0-4.0 Blood monocytes automated count (number/volume) 0. 4 10*3 0.0-1.0 Automated eosinophil count 0.2 10*3/uL 0 .0-0.3 Automated blood basophil count (count/volume) 0.1 10*3/uL 0.0-0.1 Comprehensive metabolic panel - 02/17/19 09:18 Serum or plasma sodium measurement (moles/volume) 141 mmol/L 135-145 Serum or plasma potassium measurement (moles/volume) 3.4 mmol/L 3.6-5.0 Serum or plasma chloride measurement (moles/volume) 102 mmol/L 98-107 Carbon dioxide 27 mmol/L 21-32 Serum or plasma anion gap determination (moles/volume) 12 mmol/L 5-14 Serum or plasma urea nitrogen measurement (mass/volume ) 9 mg/dL 7-18 Serum or plasma creatinine measurement (mass/volume) 0.72 mg/dL 0.60-1.30 Serum or plasma urea nitrogen/creatinine mass ratio 13 NRG Serum or plasma creatinine measurement w ith calculation of estimated glomerular filtration rate > NRG Serum or plasma glucose measurement (mass/volume) 109 mg/dL 70-105 Serum or plasma calcium measurement (mass/volume) 9.2 mg/dL 8.5-10.1 Serum or plasma total bilirubin measurement (mass/volu me) 0.5 mg/dL 0.1-1.0 Serum or plasma alkaline phosphatase carri surement (enzymatic activity/volume) 77 U/L 40-136 Serum or plasma aspartate aminotransfera se measurement (enzymatic activity/volume) 14 U/L 5-34 Serum or plasma alanine aminotransferase measurement (enzymatic activity/volume) 10 U/L 0-55 Serum or plasma protein measurement (mass/volume) 7.2 g/dL 6.4-8.2 Serum or plasma albumin measurement (mass/volume) 4.3 g/dL 3.2-4.5 CALCIUM CORRECTED 9.0 mg/dL 8.5-10.1 Magnesium - 02/17/19 09:18 Magnesium 2.2 mg/dL 1.8-2.4 TROPONIN T - 02/17/19 09:18 TROPONIN T < 6 <=10 Streptococcus pyogenes antigen detection - 09/19/19 22:45 Streptococcus pyogenes antigen detection NEGATIVE NEGATIVE Bacterial throat culture - 09/19/19 22:4 5 Bacterial throat culture NBS NRG Influenza virus A and B antigen detectio n - 09/19/19 22:55 FLU RESULT NEGATIVE FOR INFLUENZA A AND B ANTIGENS BY IA NRG Encounters ACCT No. Visit Date/Time Discharge Status Pt. Type Provider Facility Loc./Unit Complaint [id number] 09/27/2019 04:09:00 04:56:00 DIS Emergency CIARAN HAMILTON MD [facility] ER FS RT THUMB INJURY [id number] 09/19/2019 22:37:00 23:46:00 DIS Emergency CHELITA DALEY DO [facility] ER FS SORE THROAT/TROUBLE SWA CARIEG [id number] 08/23/2019 22:06:00 22:23:00 DIS Outpatient APRIL KRAUSE DO [facility] ER FS COUGH/RUNNY NOSE [id number] 07/03/2019 00:50:00 01:25:00 DIS Outpatient JAYLIN MOSES MD [facility] ER FS SORE THROAT AND EARACHE [id number] 06/15/2019 01:04:00 01:48:00 DIS Emergency IVANNA ROLLE DO [facility] ER FS LEFT ANKLE PAIN [id number] 06/01/2019 22:28:00 22:51:00 DIS Emergency IVANNA ROLLE DO [facility] ER FS SORE THROAT [id number] 02/17/2019 09:12:00 12:08:00 DIS Emergency MONTY LAL DO [facility] ER FS CHEST PAIN; RT ARM PAIN /NUMBNESS [id number] 11/27/2018 05:20:00 019 07:06:00 DIS Emergency IGNACIO MCMILLAN, GABI Danielle [facility] ER FS HEART RACING,NA USEOUS [id number] 10/25/2018 00:50:00 019 01:26:00 DIS Emergency JEANINE DIETRICH DO [facility] ER FS PAIN IN EYES
--- NOTE | 2020-01-04 22:39 | ED Lower Extremity ---
General Chief Complaint: Lower Extremity Stated Complaint: FELL,PAIN IN KNEECAP Source: patient Exam Limitations: no limitations History of Present Illness Date Seen by Provider: January 04, 2020 Time Seen by Provider: 22:39 Initial Comments states she slipped (indoors) landing on her left knee. pain on front of knee, no swelling. Has not applied ice or taken anything for pain. Able to walk and bear wt without difficulty. Allergies and Home Medications Allergies Coded Allergies: cefaclor (Verified Allergy, Unknown, hives, 10/25/18) Home Medications Amoxicillin 500 Mg Capsule, 500 MG PO BID Prescribed by: IVANNA ROLLE on 06/01/19 2247 Azithromycin 250 Mg Tablet, 250 MG PO DAILY Prescribed by: JAYLIN MOSES on 07/03/19 0106 Azithromycin 250 Mg Tablet, 250 MG PO DAILY Prescribed by: CHELITA DALEY on 09/19/19 2335 Polymyxin B Sulf/Trimethoprim 10 Ml Drops, 1 DROP OU Q4H Prescribed by: JEANINE DIETRICH on 10/25/18 0117 Tramadol HCl 50 Mg Tablet, 50 MG PO Q6H PRN for PAIN Prescribed by: IVANNA ROLLE on 06/15/19 0139 Patient Home Medication List Home Medication List Reviewed: Yes Review of Systems Constitutional: no symptoms reported Musculoskeletal: see HPI, joint pain; No joint swelling, No muscle cramps, No neck pain Skin: no symptoms reported; No change in color, No lumps Past Hnnjanv-Icowhd-Jscqxu Hx Past Med/Social Hx: Reviewed Nursing Past Med/Soc Hx Patient Social History Alcohol Use: Denies Use Recreational Drug Use: No Type Used: Cigarettes 2nd Hand Smoke Exposure: No Recent Foreign Travel: No Contact w/Someone Who Travel: No Recent Hopitalizations: No Physical Abuse: No Sexual Abuse: No Seasonal Allergies Seasonal Allergies: No Past Medical History Surgeries: Yes Section, Tonsillectomy, Tubal Ligation Respiratory: Yes Asthma Cardiac: No Neurological: No 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 oz. 79.144683ol; 34.00 BMI Method:Stated General Appearance: WD/WN, no apparent distress Hips: bilateral hip non-tender, bilateral hip normal inspection, bilateral hip normal range of motion, bilateral hip no evidence of injury Legs: bilateral leg non-tender, bilateral leg normal inspection, bilateral leg normal range of motion, bilateral leg no evidence of injury Knees: right knee normal inspection, right knee normal range of motion, right knee no evidence of injury Neurologic/Tendon: normal sensation Neurologic/Psychiatric: no motor/sensory deficits, alert Skin: normal color, warm/dry right anterior knee with soft tissue tenderness. No joint effusion, no lig. laxity. patella non-tender. no joint line TTP. NO ecchymosis Departure Impression Primary Impression: Contusion of knee Qualified Codes: S80.01XA - Contusion of right knee, initial encounter Disposition: HOME, SELF-CARE Condition: Stable Departure-Patient Inst. Decision time for Depature: 22:39 Referrals: ROSIBEL MOODY MD (PCP/Family) Primary Care Physician Patient Instructions: Contusion (DC) JUSTIN SCHMITZ DO January 04, 2020 22:39
[2020-01-04 22:41] VITALS: BP 150/90
== END 2020-01-04 22:42 | disposition home or self-care (01) ==
LOC: EDUNIT# 22:26 → ER FS 22:27
DX: S80.01XA Contusion of right knee, initial encounter (principal); Z88.1 Allergy status to other antibiotic agents; W01.0XXA Fall on same level from slipping, tripping and stumbling without subsequent striking against object, initial encounter
CPT/HCPCS: 99282

== ENCOUNTER 2020-06-03 11:10 | Emergency (ER) | payer SELFPAY ==
[~2020-06-03] VITALS: Ht 160 cm; Wt 75.2 kg
[2020-06-03 11:19] VITALS: BP 139/87
--- NOTE | 2020-06-03 11:23 | NUR ---
Dr Haile notified patient walking out with no further concern to be evaluated. Pt reporting BP is fine here and she is feeling better and "freaked out getting anxious over BP".
== END 2020-06-03 11:23 | disposition left against medical advice (07) ==
LOC: EDUNIT# 11:10 → ER FS 11:12
DX: R07.89 Other chest pain (principal)
CPT/HCPCS: 99283

== ENCOUNTER 2022-11-12 20:25 | Emergency (ER) | payer SELFPAY ==
[~2022-11-12] VITALS: Ht 157 cm; Wt 82.4 kg
[2022-11-12 20:46] VITALS: BP 120/71
--- NOTE | 2022-11-12 20:53 | ED Lower Extremity ---
General Stated Complaint: CONSTANT PAIN IN KNEE WITH WALKING History of Present Illness Date Seen by Provider: Nov 12, 2022 Time Seen by Provider: 20:50 Initial Comments 41-year-old female is here with complaints of right knee pain for the past 2 days. Patient states that the pain started in her foot and slowly went up to her right knee. Patient did not have any falls or injuries that she knows of. Patient denies any foot pain right now. She does not have any history of arthritis. Patient works in [employer] [place] and is on her feet all day long. Allergies and Home Medications Allergies Coded Allergies: cefaclor (Verified Allergy, Unknown, hives, 10/25/18) Patient Home Medication List Home Medication List Reviewed: Yes Amoxicillin (Amoxicillin) 500 Mg Capsule, 500 MG PO BID Prescribed by: IVANNA ROLLE on 06/01/19 2247 Azithromycin (Zithromax) 250 Mg Tablet, 250 MG PO DAILY Prescribed by: JAYLIN MOSES on 07/03/19 0106 Azithromycin (Azithromycin) 250 Mg Tablet, 250 MG PO DAILY Prescribed by: CHELITA DALEY on 09/19/19 2335 Polymyxin B Sulf/Trimethoprim (Polytrim Eye Drops) 10 Ml Drops, 1 DROP OU Q4H Prescribed by: JEANINE DIETRICH on 10/25/18 0117 Tramadol HCl (Tramadol HCl) 50 Mg Tablet, 50 MG PO Q6H PRN for PAIN Prescribed by: IVANNA ROLLE on 06/15/19 0139 Review of Systems Constitutional: no symptoms reported EENTM: no symptoms reported Respiratory: no symptoms reported Cardiovascular: no symptoms reported Gastrointestinal: no symptoms reported Genitourinary: no symptoms reported Musculoskeletal: joint pain Skin: no symptoms reported Psychiatric/Neurological: No Symptoms Reported Past Ovpvqjm-Rrhrhq-Awgaqu Hx Seasonal Allergies Seasonal Allergies: No Past Medical History Surgeries: Yes Section, Tonsillectomy, Tubal Ligation Respiratory: Yes Asthma Cardiac: No Neurological: No 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 oz. [id number]; 29.00 BMI Method:Stated General Appearance: WD/WN, no apparent distress HEENT: PERRL/EOMI Neck: full range of motion Back: normal inspection, no vertebral tenderness Hips: right hip non-tender, right hip normal inspection, right hip normal range of motion, right hip no evidence of injury Legs: right leg non-tender, right leg normal range of motion, right leg no evidence of injury Knees: right knee normal inspection, right knee normal range of motion, right knee no evidence of injury, right knee other (Right knee pain along the lateral and medial sides, no crepitation, no inflammation.) Ankles: right ankle non-tender, right ankle normal inspection, right ankle normal range of motion, right ankle no evidence of injury Feet: right foot non-tender, right foot normal inspection, right foot normal range of motion, right foot no evidence of injury Reflexes: 4+ knee (R) Neurologic/Tendon: normal sensation, normal motor functions, normal tendon functions Neurologic/Psychiatric: alert, normal mood/affect, oriented x 3 Skin: normal color Progress/Results/Core Measures Results/Orders My Orders Orders - CHRITSIANE MURRY MD Knee 3 View Right (11/12/22 20:52) Vital Signs/I&O 11/12/22 20:46 Temp 36.1 Pulse 96 Resp 16 B/P (MAP) 120/71 (87) Pulse Ox 99 O2 Delivery Room Air Progress Progress Note : Progress Note 1. RIGHT KNEE STRAIN: - XR RIGHT KNEE: no acute findings - MARCUS bandage/ crutches/ ice/ Ibuprofen as needed for pain -Follow-up with Ortho and PCP Diagnostic Imaging Diagonstic Imaging: Xray Plain Films/CT/US/NM/MRI: knee Comments NAME: HUBER JUAN [facility] REC#: [id number] PT STATUS: REG ER : 1980 PHYSICIAN: CHRISTIANE MURRY MD ADMIT DATE: 11/12/22/ER FS Draft Date of Exam:11/12/22 KNEE 3 VIEW RIGHT INDICATION: 41-year-old female presents with right knee pain COMPARISONS: None FINDINGS: 3 views of the right knee show no evidence of new or healing fractures, bony destruction or remodeling. IMPRESSION: No fracture or subluxation is seen. Dictated on workstation # [id number] Dict: 11/12/222110 Trans: 11/12/222121 [facility] [id number] Interpreted by: JIMMY JARVIS MD Electronically signed by: Departure Impression Primary Impression: Strain of right knee Qualified Codes: S86.911A - Strain of unspecified muscle(s) and tendon(s) at lower leg level, right leg, initial encounter Disposition: HOME, SELF-CARE Condition: Stable Departure-Patient Inst. Referrals: [facility] [place]) Primary Care Physician ANDREINA SANDERS APRN (Family) Primary Care Physician ROLF URIBE MD Patient Instructions: Muscle Strain ED, Knee Pain (DC), Knee Sprain (DC) Add. Discharge Instructions: - MARCUS bandage/ crutches/ ice/ Ibuprofen as needed for pain -Follow-up with Ortho: Dr Uribe, and PCP Work/School Note: Work Release Form Date Seen in the Emergency Department: Nov 12, 2022 Return to Work: Nov 15, 2022 Restrictions: No Sports-Until Released, Need Release from Doctor Other Restrictions Listed Below: Patient will need to elevate her leg when seated, and will have limited mob CHRISTIANE MURRY MD Nov 12, 2022 20:53
--- NOTE | 2022-11-12 21:23 | Diagnostic Imaging Report ---
INDICATION: 41-year-old female presents with right knee pain COMPARISONS: None FINDINGS: 3 views of the right knee show no evidence of new or healing fractures, bony destruction or remodeling. IMPRESSION: No fracture or subluxation is seen. Dictated by: Dictated on workstation # [id number]
== END 2022-11-12 22:06 | disposition home or self-care (01) ==
LOC: EDUNIT# 20:25 → ER FS 20:27
DX: S86.911A Strain of unspecified muscle(s) and tendon(s) at lower leg level, right leg, initial encounter (principal); Z28.310 Unvaccinated for COVID-19; X58.XXXA Exposure to other specified factors, initial encounter
CPT/HCPCS: 73562

== ENCOUNTER 2023-03-30 01:21 | Emergency (ER) | payer SELFPAY ==
[~2023-03-30] VITALS: Ht 157.4 cm; Wt 83.3 kg
[2023-03-30] MEDS ORDERED: predniSONE 20 MG TAB PO STA (01:33)
[2023-03-30] MEDS ORDERED: PRD20T PO (01:40)
--- NOTE | 2023-03-30 01:40 | ED Lower Extremity ---
General Stated Complaint: LEFT FOOT INJ Source: patient History of Present Illness Date Seen by Provider: Mar 30, 2023 Time Seen by Provider: 01:23 Initial Comments 42-year-old female presenting with complaints of pain that started yesterday to the base of her left foot. It is right behind the balls of her toes. She states that occasionally she will have to her ankle. She denies any acute injury that she is aware of. 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 She has not tried taking anything for the pain. She worked all of her regular shift today but was having increased pain tonight. She is to go back again in 6 AM and with the severe pain she came to the emergency department to be evaluated. Onset: yesterday Severity: severe Pain/Injury Location: left foot Method of Injury: unknown Modifying Factors: Worse With Movement Allergies and Home Medications Allergies Coded Allergies: cefaclor (Verified Allergy, Unknown, hives, 10/25/18) Patient Home Medication List Home Medication List Reviewed: Yes Amoxicillin (Amoxicillin) 500 Mg Capsule, 500 MG PO BID Prescribed by: IVANNA ROLLE on 06/01/19 2247 Azithromycin (Zithromax) 250 Mg Tablet, 250 MG PO DAILY Prescribed by: JAYLIN MOSES on 07/03/19 0106 Azithromycin (Azithromycin) 250 Mg Tablet, 250 MG PO DAILY Prescribed by: CHELITA DALEY on 09/19/19 2335 Polymyxin B Sulf/Trimethoprim (Polytrim Eye Drops) 10 Ml Drops, 1 DROP OU Q4H Prescribed by: JEANINE DIETRICH on 10/25/18 0117 Prednisone (Prednisone) 20 Mg Tab, 40 MG PO DAILY Prescribed by: RAJNI CERON on 03/30/23 0140 Tramadol HCl (Tramadol HCl) 50 Mg Tablet, 50 MG PO Q6H PRN for PAIN Prescribed by: IVANNA ROLLE on 06/15/19 0139 Review of Systems Constitutional: No chills, No fever EENTM: no symptoms reported Respiratory: no symptoms reported Cardiovascular: no symptoms reported Gastrointestinal: no symptoms reported Genitourinary: no symptoms reported Musculoskeletal: see HPI Skin: No rash Psychiatric/Neurological: Denies Numbness, Denies Paresthesia Past Gkmwcho-Cormmd-Gfbppq Hx Immunizations Up To Date First/Initial COVID19 Vaccinat: NA Second COVID19 Vaccination Randell: NA Seasonal Allergies Seasonal Allergies: No Past Medical History Surgery/Hospitalization HX: C SECTION X5, TONSILS, Surgeries: Yes Section, Tonsillectomy, Tubal Ligation Respiratory: Yes Asthma Cardiac: No Neurological: No 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 oz. 79.998453jt; 33.00 BMI Method:Stated General Appearance: WD/WN, no apparent distress Cardiovascular: normal peripheral pulses Feet: left foot soft tissue tenderness (Along the plantar fascia she has tenderness to palpation.), left foot other (She has no bruising or obvious deformity and no rash or erythema to the foot.) Neurologic/Tendon: normal sensation, normal motor functions Neurologic/Psychiatric: events manager II-XII nml as tested, no motor/sensory deficits, alert, oriented x 3 Skin: normal color, warm/dry Progress/Results/Core Measures Results/Orders My Orders Orders - RAJNI CERON MD Foot 3 View Left (03/30/23 01:33) Prednisone Tablet (Deltasone Tablet) (03/30/23 01:33) Progress Progress Note #1: Progress Note Placed on monitor she is complaining of pain and appears to be more of a planter fasciitis especially since she is on her feet a lot for work. Will obtain x- rays to ensure that there is no occult fracture. Administer prednisone 40 mg p.o. x1 here and plan to continue a steroid burst for anti-inflammatory effect. Recommend stretching and supportive shoes with good arch support. Check back with the clinic if having continued symptoms and she may need to have a burr grinder or physician office specialist take a look at things as well. Progress Note #2: Progress Note On my personal interpretation and review I did not appreciate any acute bony abnormality on the three-view films of her left foot. We will proceed with supportive and stretching care for possible plantar fasciitis. Use the steroids to help with pain and inflammation. Check back with the clinic if not improving and she may need to have a burr grinder or specialist evaluate her foot. She might need an MRI if things are worsening. Diagnostic Imaging Diagonstic Imaging: Xray Plain Films/CT/US/NM/MRI: other (foot) Reviewed: Reviewed by Me Departure Impression Primary Impression: Plantar fasciitis of left foot Additional Impression: Pain of left foot Disposition: HOME, SELF-CARE Condition: Stable Departure-Patient Inst. Decision time for Depature: 01:56 Referrals: [facility] (PCP) Primary Care Physician ANDREINA SANDERS APRN (Family) Primary Care Physician Patient Instructions: Plantar Fasciitis Exercises Add. Discharge Instructions: Make sure you are wearing supportive shoes with good arch support. Try to take frequent breaks at least every 2-3 hours to get off of your feet for 15 minutes and rest them. Take the steroid for anti-inflammatory and pain control. You may take Acetaminophen in addition to the steroid for added pain control. Check with clinic if not improving as they may need to refer you to Counter [facility] or have MRI to look at the soft tissues of the foot. Scripts Prednisone (Prednisone) 20 Mg Tab 40 MG PO DAILY for foot pain/plantar fasciitis for 5 Days, #10 TAB 0 Refills Prov: RAJNI CERON MD 03/30/23 Work/School Note: Work Release Form Date Seen in the Emergency Department: Mar 30, 2023 Return to Work: Mar 31, 2023 Restrictions: No Sports-Until Released Other Restrictions Listed Below: Limit standing <3 hours at a time. Rest 15 min with foot elevated every 3hr RAJNI CERON MD Mar 30, 2023 01:40
[2023-03-30 02:05] VITALS: BP 151/81
--- NOTE | 2023-03-30 06:28 | Diagnostic Imaging Report ---
INDICATION: Left foot pain 3 views of the left foot show no fracture, dislocation or other acute abnormalities. IMPRESSION: Negative left foot Dictated by: Dictated on workstation # [id number]
== END 2023-03-31 02:05 | disposition home or self-care (01) ==
LOC: EDUNIT# 01:21 → ER FS 01:23
DX: M72.2 Plantar fascial fibromatosis (principal); Z28.310 Unvaccinated for COVID-19; X50.0XXA Overexertion from strenuous movement or load, initial encounter; Y92.129 Unspecified place in nursing home as the place of occurrence of the external cause
CPT/HCPCS: 73630

== ENCOUNTER 2023-05-11 03:20 | Emergency (ER) | payer SELFPAY ==
[~2023-05-11] VITALS: Ht 157 cm; Wt 83.1 kg
[~2023-05-11 03:20] MED LIST changes: +PRD20T PO
--- NOTE | 2023-05-11 03:39 | ED Respiratory ---
General Stated Complaint: COUGHING,SOB Source: patient History of Present Illness Date Seen by Provider: May 11, 2023 Time Seen by Provider: 03:35 Initial Comments PT ARRIVES VIA POV FROM HOME PT STATE SHE BEGAN HAVING A NON-PRODUCTIVE COUGH TODAY AT 0315 THIS AM, SHE FELT SHORT OF BREATH WITH COUGHING, SO RUSHED HERE. SHE IS NOT SHORT OF BREATH NOW NO FEVER NO CHEST PAIN OR PAIN WITH BREATHING NO HEADACHE NO BODY ACHES SHE HAD A LEFT EAR INFECTION > 1 MONTH AGO, THOSE SYMPTOMS RESOLVED. 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 LMP 2 WEEKS AGO. NORMAL. S/P BTL PCP: [facility] Allergies and Home Medications Allergies Coded Allergies: cefaclor (Verified Allergy, Unknown, hives, 10/25/18) Patient Home Medication List Home Medication List Reviewed: Yes Albuterol Sulfate (Ventolin Hfa) 90 Mcg Hfa.aer.ad, 2 PUFF IH Q4H Prescribed by: ADILENE GIRARD on 05/11/23419 Benzonatate (Tessalon Perles) 100 Mg Capsule, 100 MG PO TID Prescribed by: ADILENE GIRARD on 05/11/23419 Doxycycline Hyclate (Doxycycline Hyclate) 100 Mg Tablet, 100 MG PO BID Prescribed by: ADILENE GIRARD on 05/11/23419 Prednisone (Prednisone) 20 Mg Tab, 40 MG PO DAILY Prescribed by: RAJNI CERON on 03/30/23 0140 Review of Systems Review of Systems Constitutional: no symptoms reported EENTM: no symptoms reported Respiratory: see HPI Cardiovascular: no symptoms reported Gastrointestinal: no symptoms reported Genitourinary: no symptoms reported : No LMP: Apr 25, 2023 Musculoskeletal: no symptoms reported Skin: no symptoms reported Psychiatric/Neurological: No Symptoms Reported Hematologic/Lymphatic: No Symptoms Reported Immunological/Allergic: no symptoms reported Past Bqafcip-Wtnkcv-Cauldz Hx Patient Social History Tobacco Use?: Yes Tobacco type used: Cigarettes Smoking Status: Current Everyday Smoker Immunizations Up To Date First/Initial COVID19 Vaccinat: NA Second COVID19 Vaccination Randell: NA Third COVID19 Vaccination Date: NA Seasonal Allergies Seasonal Allergies: No Past Medical History Surgery/Hospitalization HX: C SECTION X5, TONSILS, TUBAL LIGATION Surgeries: Yes Section, Tonsillectomy, Tubal Ligation Respiratory: Yes Asthma Cardiac: No Neurological: No Reproductive Disorders: No Female Reproductive Disorders: 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 oz. 79.117079sd; 33.00 BMI Method:Stated General Appearance: WD/WN, no apparent distress, other (SITTING STYLE, PLAYING ON PHONE. SMILING, DOES NOT APPEAR ILL OR TO BE IN ANY DISCOMFORT OR DISTRESS. ) HEENT: PERRL/EOMI, TMs normal, pharynx normal, other (EXTENSIVE DENTAL DECAY, WITH MOST TEETH DECAYED DOWN TO GUMS) Neck: normal inspection Respiratory: chest non-tender, normal breath sounds, no respiratory distress, no accessory muscle use Cardiovascular: regular rate, rhythm, no edema, no JVD, no murmur Gastrointestinal: non tender Extremities: normal inspection Neurologic/Psychiatric: patient information coordinator II-XII nml as tested, no motor/sensory deficits, alert, normal mood/affect, oriented x 3 Skin: normal color, warm/dry Progress/Results/Core Measures Suspected Sepsis SIRS Temperature: Pulse: Respiratory Rate: Blood Pressure / Mean: Results/Orders Lab Results Laboratory Tests Test 05/11/23 03:32 Range/Units Influenza Type A (RT-PCR) Not Detected Not Detecte Influenza Type B (RT-PCR) Not Detected Not Detecte SARS-CoV-2 RNA (RT-PCR) Not Detected Not Detecte My Orders Orders - ADILENE GIRARD DO Covid 19 Inhouse Test (05/11/23 03:34) Influenza A And B By Pcr (05/11/23 03:34) Rx-Doxycycline Tablet (Rx-Vibramycin Tab (05/11/23 04:17) Benzonatate Capsule (Benzonatate Capsule (05/11/23 04:30) Vital Signs/I&O 05/11/23 05/11/23 03:38 04:29 Temp 36.1 36.2 Pulse 100 93 Resp 20 16 B/P (MAP) 126/80 (95) 121/77 Pulse Ox 97 O2 Delivery Room Air Room Air Capillary Refill : Progress Note : Progress Note VITALS STABLE, AFEBRILE NO COUGH AT ANY TIME NO DYSPNEA NO HYPOXIA NO FEVER NO COMPLAINTS OF ANY KIND DURING ER STAY COVID AND FLU NEGATIVE SPACER SENT HOME WITH PATIENT AND INSTRUCTED ON USE DISCUSSED TEST RESULTS, ANTICIPATED COURSE, SYMPTOMATIC TREATMENT, MEDICATIONS, NEED FOR FOLLOW UP AND RETURN PRECAUTIONS REVIEWED PRIOR RECORDS, ALL ER VISITS Departure Impression Primary Impression: Bronchitis Additional Impressions: Asthma Smoker Disposition: HOME, SELF-CARE Condition: Stable Departure-Patient Inst. Decision time for Depature: 04:19 Referrals: [facility] (PCP) Primary Care Physician ANDREINA SANDERS APRN (Family) Primary Care Physician Patient Instructions: Acute Bronchitis, Adult (DC), Asthma, Adult (DC), How to Use a Metered Dose Inhaler ED, Quitting Smoking ED Add. Discharge Instructions: NO SMOKING TYLENOL AND MOTRIN FOR PAIN OR FEVER LOTS OF CLEAR LIQUIDS OVER THE COUNTER MUCINEX DM FOR COUGH RETEST FOR COVID IN 24-48 HOURS FOLLOW UP WITH YOUR DR IN 3-4 DAYS IF NO BETTER, RETURN TO ER IF WORSE Scripts Benzonatate (TESSALON PERLES) 100 Mg Capsule 100 MG PO TID, #30 CAP Prov: ADILENE GIRARD DO 05/11/23 Albuterol Sulfate (Ventolin Hfa) 90 Mcg Hfa.aer.ad 2 PUFF IH Q4H, #1 EA 1 PUFF = 90 MCG Prov: ADILENE GIRARD DO 05/11/23 Doxycycline Hyclate (Doxycycline Hyclate) 100 Mg Tablet 100 MG PO BID, #20 TAB 0 Refills Prov: ADILENE GIRARD DO 05/11/23 Work/School Note: Work Release Form Date Seen in the Emergency Department: May 11, 2023 Return to Work: May 13, 2023 ADILENE GIRARD DO May 11, 2023 03:39
[2023-05-11] MEDS ORDERED: RX-DOXYCYCLINE 100 MG (VIBRAMYCIN) TAB PPK#2 PO STA (04:17)
[2023-05-11] MEDS ORDERED: ALBU8.5H6 IH (04:20)
[2023-05-11] MEDS ORDERED: DOXY100T2 PO (04:20)
[2023-05-11] MEDS ORDERED: BENZ100C18 PO (04:20)
[2023-05-11 04:29] VITALS: BP 121/77
[2023-05-11] MEDS ORDERED: BENZONATATE 100 MG CAPSULE PO SCH (04:30)
== END 2023-05-11 04:29 | disposition home or self-care (01) ==
LOC: EDUNIT# 03:20 → ER 03:23
DX: J45.909 Unspecified asthma, uncomplicated (principal); F17.210 Nicotine dependence, cigarettes, uncomplicated; Z20.822 Contact with and (suspected) exposure to COVID-19
CPT/HCPCS: 87636; 99283